=== PATIENT | male | born 1930 | race Caucasian/White ===

== ENCOUNTER 2018-11-02 18:29 | Observation (INO) | payer MEDICARE, BC ==
[2018-11-02] MEDS ORDERED: Furosemide 40 MG/4 ML VIAL IVPUSH ONE (19:34)
--- NOTE | 2018-11-02 19:51 | EDM.PDOC ---
ED HPI GENERAL MEDICAL PROBLEM - General Chief Complaint: Respiratory Problem Stated Complaint: ILLNESS Time Seen by Provider: 11/02/18 18:31 Source of Information: Reports: Patient, Family (Daughter Krista Steven), Provider (clinic note/labs) History Limitations: Reports: No Limitations - History of Present Illness INITIAL COMMENTS - FREE TEXT/NARRATIVE: Shortness of breath: This is a 87 year old male presents [facility], He is here with his daughter Krista Steven, she reports her Father has lived alone since 2003, this fall she moved to his home to help him out due to failing health. For the past two weeks he has been having worsen breathing. Whenever he got up with his walker or moves around he becomes very short of breath. Last night he didn't sleep, whenever he tried to lay down became very short of breath, he tried to sleep upright with pillows. His daughter brought him to [facility] where he had labs and a chest xray. He was noted to be very short of breath, sent to ER for further evaluation. past medical history of atrial fib.-pacemaker with defib, Coumadin. shortness of breath: albuterol nebs every 4 hours as needed. Onset: Gradual Duration: Week(s):, Getting Worse Location: Reports: Chest, Generalized, Other (bilateral lower leg edema) Severity: Severe (with any activity) Improves with: Reports: Rest Worsens with: Reports: Movement Associated Symptoms: Reports: Shortness of Breath denies pain Pain Score (Numeric/FACES): 0 - Related Data Allergies Allergy/AdvReac Type Severity Reaction Status Date / Time No Known Allergies Allergy Verified 11/02/18 19:38 Home Meds: Home Meds Albuterol Sulfate 3 ml INH Q4H PRN 01/31/18 [History] Carvedilol 1 tab PO BID 01/31/18 [History] Losartan Potassium 1 tab PO DAILY 01/31/18 [History] Simvastatin [Zocor] 1 tab PO DAILY 01/31/18 [History] Acetaminophen with Codeine [Acetaminophen-Cod #3] 1 tab PO Q6H PRN 11/02/18 [ History] Amiodarone [Cordarone] 200 mg PO DAILY 11/02/18 [History] Gluc Steen Dipo Ch/Srinath Steen/C/José Manuel [Glucosamine Chondroitin Caplet] 1 tab PO BID [History] Warfarin [Coumadin] 2.5 mg PO ASDIRECTED 11/02/18 [History] Past Medical History 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 with ADL.has 3 step children-not involved in care, and 2 daughters.) Occupation: Retired ED ROS GENERAL - Review of Systems Review Of Systems: See Below Constitutional: Reports: Weakness, Fatigue (due to shortness of breath) HEENT: Reports: Other (hard of hearing, no teeth) Respiratory: Reports: Shortness of Breath Cardiovascular: Reports: Dyspnea on Exertion, Edema, Orthopnea Endocrine: Reports: No Symptoms GI/Abdominal: Reports: No Symptoms : Reports: No Symptoms Musculoskeletal: Reports: Other (arthritis) Skin: Reports: Dryness Neurological: Reports: Pre-Existing Deficit (difficulty walking) Psychiatric: Reports: No Symptoms Hematologic/Lymphatic: Reports: No Symptoms Immunologic: Reports: No Symptoms ED EXAM, GENERAL - Physical Exam Exam: See Below Exam Limited By: Respiratory Distress (with activity) General Appearance: Alert, WD/WN, No Apparent Distress (while at rest, increase respiratory distress with activity) Eye Exam: Bilateral Eye: EOMI, Normal Inspection, PERRL Ears: Normal External Exam, Normal Canal, Normal TMs, Other (hard of hearing) Ear Exam: Bilateral Ear: Canal Normal, TM normal, TM Dull Nose: Normal Inspection, Normal Mucosa, No Blood Throat/Mouth: Normal Inspection, Normal Lips, Normal Gums, No Airway Compromise , Other (no teeth upper or lower) Head: Atraumatic, Normocephalic Neck: Normal Inspection, Supple, Non-Tender, Full Range of Motion Respiratory/Chest: Decreased Breath Sounds (bilateral , no wheezing, rhonchi or crackles at rest, with movement increase wheezing, shortness of breath.) Cardiovascular: No Murmur, No Rub, Irregularly Irregular, Other (bilateral, 2+ pitting edema to mid calves, no signs of secondary infection. ) GI/Abdominal: Normal Bowel Sounds, Soft, Non-Tender, No Organomegaly, No Distention, Pelvis Stable (Male) Exam: No Hernia, Normal Inspection Rectal (Males) Exam: Deferred Back Exam: Normal Inspection, Decreased Range of Motion (due to arthritis) Extremities: Pedal Edema (bilateral 2+ pitting), Slow Capillary Refill (lower leg due to edema), Other (toes and feet skin very dry and flakey) Neurological: Alert, Oriented, Normal Cognition Psychiatric: Normal Affect, Normal Mood, Other (pleasant, alert and good historian. ) Skin Exam: Warm, Dry, Intact, Normal Color, No Rash Lymphatic: No Adenopathy Course - Vital Signs Last Recorded V/S: Last Vital Signs Temp 36.1 C 11/02/18 19:14 Pulse 57 L 11/02/18 19:14 Resp 16 11/02/18 19:14 BP 148/69 H 11/02/18 19:14 Pulse Ox 94 L 11/02/18 19:14 - Orders/Labs/Meds Orders: Active Orders 24 hr Category Date Time Status Chest w Cont [CT] Stat Exams 11/02/18 19:32 Ordered Sodium Chloride 0.9% [Saline Flush] Med 11/02/18 19:23 Active 10 ml FLUSH ASDIRECTED PRN Saline Lock Insert [OM.PC] Routine Oth 11/02/18 19:23 Ordered Medication Orders Sodium Chloride (Saline Flush) 10 ml FLUSH ASDIRECTED PRN PRN Reason: Keep Vein Open Labs: Laboratory Tests 11/02/18 Range/Units 18:51 Puncture Site Lt brachial ABG pH 7.487 H (7.350-7.450) ABG pCO2 28.6 L (35.0-42.0) mmHg ABG pO2 105.0 H (75.0-100.0) mmHg ABG HCO3 21.4 L (22.0-26.0) mmol/L ABG Total CO2 19.1 L (23.0-27.0) mmol/L ABG O2 Saturation 98.3 H (95.0-98.0) % ABG O2 Content 16.0 (15.0-23.0) %vol ABG Base Excess -0.7 mm/L ABG Hemoglobin 11.8 L (13.5-18.0) g/dL ABG Oxyhemoglobin 95.6 % ABG Carboxyhemoglobin 2.1 H (0.0-1.6) % ABG Methemoglobin 0.6 % Dinesh Test Passed O2 Delivery Device Room air Meds: Medications Generic Name Dose Route Start Last Admin Trade Name Freq PRN Reason Stop Dose Admin Sodium Chloride 10 ml 11/02/18 19:23 Saline Flush FLUSH ASDIRECTED PRN Keep Vein Open Discontinued Medications Generic Name Dose Route Start Last Admin Trade Name Freq PRN Reason Stop Dose Admin Furosemide 40 mg 11/02/18 19:34 Lasix IVPUSH 11/02/18 19:35 ONETIME ONE - Re-Assessments/Exams Free Text/Narrative Re-Assessment/Exam: 11/02/18 20:06 consult with Internal Medicine, Hospitalist. labs: ABG Imaging: Chest CT with contrast Meds: lasix 40mg IVP will admit to [facility] for further care and treatment. Mr. Angeles and Daughter are in agreement with plan of care. Departure - Departure Time of Disposition: 20:08 Disposition: Admitted As Inpatient 66 Condition: Good Clinical Impression: Congestive heart failure - Discharge Information *PRESCRIPTION DRUG MONITORING PROGRAM REVIEWED*: Not Applicable *COPY OF PRESCRIPTION DRUG MONITORING REPORT IN PATIENT SHANTI: Not Applicable Referrals: Be Smith MD [Primary Care Provider] - - My Orders Last 24 Hours: My Active Orders 11/02/18 19:23 Sodium Chloride 0.9% [Saline Flush] 10 ml FLUSH ASDIRECTED PRN Saline Lock Insert [OM.PC] Routine 11/02/18 19:32 Chest w Cont [CT] Stat - Assessment/Plan Last 24 Hours: My Active Orders 11/02/18 19:23 Sodium Chloride 0.9% [Saline Flush] 10 ml FLUSH ASDIRECTED PRN Saline Lock Insert [OM.PC] Routine 11/02/18 19:32 Chest w Cont [CT] Stat
[2018-11-02] MEDS ORDERED: Sodium Chloride 0.9% 10 ML Syringe FLUSH ONE (19:53)
[2018-11-02] MEDS ORDERED: Sodium Chloride 0.9% 75 ML IV SCH (20:00)
[2018-11-02] MEDS ORDERED: Iopamidol 612 MG/ML 100 ML Bottle IV SCH (20:00)
[2018-11-02] MEDS: Sodium Chloride 0.9% 10 ML Syringe FLUSH PRN (20:26)
--- NOTE | 2018-11-02 20:27 | PCM.HP ---
H&P History of Present Illness - General Date of Service: 11/02/18 Admit Problem/Dx: Admission Diagnosis/Problem Admission Diagnosis/Problem Congestive heart failure Source of Information: Patient, Family History Limitations: Reports: No Limitations - History of Present Illness Initial Comments - Free Text/Narative: - History of Present Illness Shortness of breath: This is a 87 year old male presents [facility], He is here with his daughter Krista Steven, she reports her Father has lived alone since 2003, this fall she moved to his home to help him out due to failing health. For the past two weeks he has been having worsen breathing. Whenever he got up with his walker or moves around he becomes very short of breath. Last night he didn't sleep, whenever he tried to lay down became very short of breath, he tried to sleep upright with pillows. His daughter brought him to [facility] where he had labs and a chest xray. He was noted to be very short of breath, sent to ER for further evaluation. past medical history of atrial fib.-pacemaker with defib, Coumadin. shortness of breath: albuterol nebs every 4 hours as needed Onset of Symptoms: Reports: Gradual Duration of Symptoms: Reports: Week(s): (past weeks failing health, past two days increased shortness of breath) Location: Reports: Generalized Severity: Moderate (shortness of breath with activity) Improves with: Reports: Rest Worsens with: Reports: Movement Associated Symptoms: Reports: Malaise, Shortness of Breath, Weakness denies pain Pain Score (Numeric/FACES): 0 - Related Data Allergies/Adverse Reactions: Allergies Allergy/AdvReac Type Severity Reaction Status Date / Time No Known Allergies Allergy Verified 11/02/18 19:38 Home Medications: Home Meds Albuterol Sulfate 3 ml INH Q4H PRN 01/31/18 [History] Carvedilol 1 tab PO BID 01/31/18 [History] Losartan Potassium 1 tab PO DAILY 01/31/18 [History] Simvastatin [Zocor] 1 tab PO DAILY 01/31/18 [History] Acetaminophen with Codeine [Acetaminophen-Cod #3] 1 tab PO Q6H PRN 11/02/18 [ History] Amiodarone [Cordarone] 200 mg PO DAILY 11/02/18 [History] Gluc Steen Dipo Ch/Srinath Steen/C/José Manuel [Glucosamine Chondroitin Caplet] 1 tab PO BID [History] Warfarin [Coumadin] 2.5 mg PO ASDIRECTED 11/02/18 [History] Past Medical History 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 of Hearing Cardiovascular History: Reports: Afib, Automatic Implantable Cardioverter Defibrillators, Heart Failure, Pacemaker, SOB on Exertion Other Cardiovascular History: pacer/defib Respiratory History: Reports: SOB Gastrointestinal History: Reports: GERD Musculoskeletal History: Reports: Arthritis Hematologic History: Reports: Anticoagulation Therapy Dermatologic History: Reports: Other (See Below) Other Dermatologic History: dry feet - Past Surgical History HEENT Surgical History: Reports: Cataract Surgery Social & Family History - Tobacco Use Smoking Status *Q: Never Smoker - Recreational Drug Use Recreational Drug Use: No - Living Situation & Occupation Living situation: Reports: with Family (lives in his own home in [place], [place], has Daughter Krista Steven living in home to [facility] with ADL.has 3 step children-not involved in care, and 2 daughters.) Occupation: Retired H&P Review of Systems - Review of Systems: Review Of Systems: See Below General: Reports: Weakness, Weight Gain (Daughter reports 10 pound wt gain over the past few months), Other (shortness of breath with activity) HEENT: Reports: Other (absent teeth, hard of hearing, does not wear hearing aides) Pulmonary: Reports: Shortness of Breath, Wheezing Cardiovascular: Reports: Dyspnea on Exertion, Orthopnea, Edema (bilateral lower legs) Gastrointestinal: Reports: No Symptoms Genitourinary: Reports: No Symptoms Musculoskeletal: Reports: Muscle Stiffness (arthritis from advanced age), Other (arthritis) Skin: Reports: Dryness (feet and toes with very dry skin.) Psychiatric: Reports: No Symptoms Neurological: Reports: No Symptoms Hematologic/Lymphatic: Reports: Other (coumadin therapy for A-fib., cardiac pacer with defib.) Immunologic: Reports: No Symptoms Exam - Exam Exam: See Below - Vital Signs Vital Signs: Last Vital Signs Temp 36.1 C 11/02/18 19:14 Pulse 51 L 11/02/18 20:02 Resp 16 11/02/18 19:14 BP 154/67 H 11/02/18 20:02 Pulse Ox 99 11/02/18 20:02 Weight: 74.843 kg - Exam Quality Assessment: Supplemental Oxygen, DVT Prophylaxis (coumadin therapy) General: Alert, Oriented, Cooperative, Moderate Distress (with any activity.) HEENT: PERRLA, Conjunctiva Clear, EOMI, Posterior Pharynx Clear, Pupils Equal, Pupils Reactive, TMs Clear, Other (absent teeth) Neck: Supple, Trachea Midline, Full Range of Motion Lungs: Clear to Auscultation, Normal Respiratory Effort, Decreased Breath Sounds , Wheezing (with any activity) Cardiovascular: Irregular Rhythm GI/Abdominal Exam: Normal Bowel Sounds, Soft, Non-Tender, No Distention, No Abnormal Bruit (Male) Exam: Normal Inspection Rectal (Males) Exam: Deferred Back Exam: Normal Inspection Extremities: Pedal Edema (bilateral 2+ pitting edema to mid calves), Slow Capillary Refill, Other (bilateral leg weakness due to edema and arthritis in knees) Skin: Warm, Dry, Intact Neurological: Strength Equal Bilateral, Normal Speech Neuro Extensive - Mental Status: Alert, Oriented x3, Normal Mood/Affect, Normal Cognition, Memory Intact Neuro Extensive - Motor, Sensory, Reflexes: Motor/Sensory Deficits (difficulty walking due to arthritis, edema and shortness of breath) Psychiatric: Alert, Normal Affect, Normal Mood - Patient Data Lab Results Last 24 hrs: Laboratory Results - last 24 hr 11/02/18 Range/Units 18:51 Puncture Site Lt brachial ABG pH 7.487 H (7.350-7.450) ABG pCO2 28.6 L (35.0-42.0) mmHg ABG pO2 105.0 H (75.0-100.0) mmHg ABG HCO3 21.4 L (22.0-26.0) mmol/L ABG Total CO2 19.1 L (23.0-27.0) mmol/L ABG O2 Saturation 98.3 H (95.0-98.0) % ABG O2 Content 16.0 (15.0-23.0) %vol ABG Base Excess -0.7 mm/L ABG Hemoglobin 11.8 L (13.5-18.0) g/dL ABG Oxyhemoglobin 95.6 % ABG Carboxyhemoglobin 2.1 H (0.0-1.6) % ABG Methemoglobin 0.6 % Dinesh Test Passed O2 Delivery Device Room air - Problem List (1) Congestive heart failure SNOMED Code(s): 77365650 ICD Code: I50.9 - HEART FAILURE, UNSPECIFIED Status: Acute Priority: High Current Visit: Yes Qualifiers: Heart failure type: unspecified Heart failure chronicity: acute on chronic Qualified Code(s): I50.9 - Heart failure, unspecified Problem List Initiated/Reviewed/Updated: Yes Orders Last 24hrs: Active Orders 24 hr Category Date Time Status Patient Status Manage Transfer [TRANSFER] Routine ADT 11/02/18 20:10 Ordered Chest w Cont [CT] Stat Exams 11/02/18 19:32 Ordered Iopamidol [Isovue-300 (61%)] Med 11/02/18 20:00 Active 100 ml IV . DIRECTED Sodium Chloride 0.9% [Normal Saline] 75 ml Med 11/02/18 20:00 Active IV ASDIRECTED Sodium Chloride 0.9% [Saline Flush] Med 11/02/18 19:23 Active 10 ml FLUSH ASDIRECTED PRN Saline Lock Insert [OM.PC] Routine Oth 11/02/18 19:23 Ordered Resuscitation Status Routine Resus Stat 11/02/18 20:12 Ordered Medication Orders Sodium Chloride (Normal Saline) 75 mls @ 3 mls/sec IV ASDIRECTED JOSEPH Last Admin: 11/02/18 20:26 Dose: 3 mls/sec Iopamidol (Isovue-300 (61%)) 100 ml IV . DIRECTED JOSEPH Last Admin: 11/02/18 20:26 Dose: 100 ml Sodium Chloride (Saline Flush) 10 ml FLUSH ASDIRECTED PRN PRN Reason: Keep Vein Open Last Admin: 11/02/18 20:26 Dose: 10 ml Assessment/Plan Comment:: ASSESSMENT / PLAN -This is a 87 year old male present [facility] for evaluation of shortness of breath. Shortness of breath: This is a 87 year old male presents to [facility], He is here with his daughter Krista Steven, she reports her Father has lived alone since 2003, this fall she moved to his home to help him out due to failing health. For the past two weeks he has been having worsen breathing. Whenever he got up with his walker or moves around he becomes very short of breath. Last night he didn't sleep, whenever he tried to lay down became very short of breath, he tried to sleep upright with pillows. His daughter brought him to [facility] where he had labs and a chest xray. He was noted to be very short of breath, sent to ER for further evaluation. past medical history of atrial fib.-pacemaker with defib, Coumadin. shortness of breath: albuterol nebs every 4 hours as needed Plan -Admit OBS to [address] [place] [address] for further monitoring -given Lasix 40 mg IVP once in ER -CT chest with contrast completed in ER, awaiting results -saline lock -Telemetry -Oxygen 2 liter per nasal cannula -Albuterol nebs or Duonebs every 4 hours as needed for shortness of breath -Advise to notify nurses of any chest pain or other symptoms -And a.m. labs: CBC, BMP,INR, PT Maintenance issues -Orders home meds: ordered -Nutrition: mechanical soft diet due to absent teeth -Hernandez catheter not indicated at this time -DVT: Coumadin -GI Prophalaxis; Protonix 40mg daily CODE STATUS: Full Admission status: Admit to Observation -I expect this patient to stay less than 24 hours, not to exceed 96 hours for evaluation and management of this problem. Disposition: home with Daughter Primary care provider: Dr. Smith, [facility] Hospitalist: Dr. Hoffmann
[2018-11-02] MEDS ORDERED: Ondansetron 4 MG Tab.DIS PO PRN (21:20)
[2018-11-02] MEDS ORDERED: Docusate Sodium 100 MG Cap PO PRN (21:20)
[2018-11-02] MEDS ORDERED: Albuterol/Ipratropium 3.0-0.5 MG/3 ML Neb Soln NEB PRN (21:20)
[2018-11-02] MEDS ORDERED: Acetaminophen 325 MG Tab PO PRN (21:20)
[2018-11-02] MEDS ORDERED: Morphine 2 MG/ML Syringe IVPUSH PRN (21:20)
[2018-11-02] MEDS ORDERED: Acetaminophen/Codeine 300-30 MG Tab PO PRN (21:20)
[2018-11-02] MEDS ORDERED: Albuterol 0.083% 2.5 MG/3 ML Neb Soln NEB PRN (21:20)
[2018-11-02] MEDS ORDERED: Melatonin 3 MG Tab PO PRN (21:20)
[2018-11-02] MEDS ORDERED: diphenhydrAMINE 25 MG Cap PO PRN (21:20)
[2018-11-02] MEDS: Carvedilol 25 MG Tab PO SCH (21:51)
[2018-11-02] MEDS ORDERED: Warfarin 2.5 MG Tab PO ONE (23:15)
[2018-11-03] MEDS ORDERED: Furosemide 40 MG/4 ML VIAL IVPUSH ONE ×2 (08:30→18:00)
[2018-11-03] MEDS ORDERED: Potassium Chloride 20 MEQ Tab.ER PO ONE ×2 (09:00→17:00)
[2018-11-03] MEDS: Sodium Chloride 0.9% 10 ML Syringe FLUSH PRN (09:06)
[2018-11-03] MEDS: Losartan 50 MG Tab PO SCH (09:11)
[2018-11-03] MEDS: Amiodarone 200 MG Tab PO SCH (09:11)
[2018-11-03] MEDS: Carvedilol 25 MG Tab PO SCH ×2 (09:12→20:37)
[2018-11-03] MEDS: Potassium Chloride 20 MEQ, Lidocaine 1% 2 ML in Sodium Chloride 0.9% 100 ML IV SCH ×2 (10:05→12:19)
--- NOTE | 2018-11-03 11:10 | PCM.PN ---
- General Info Date of Service: 11/03/18 Subjective Update: Bryce is an 87-year-old gentleman who was admitted through the emergency department with increased shortness of breath secondary to congestive heart failure exacerbation. Weight had gone up approximately 10 pounds over the past few days he developed increased peripheral edema associated with increased shortness of breath. Initially he presented to the walk-in clinic and was referred to the emergency department for further evaluation. CT scan of the chest was obtained showing no evidence of pulmonary embolism or significant infiltrate. He feels better this morning after having received IV furosemide in the emergency department and again this morning. Functional Status: Reports: Tolerating Diet, Urinating - Review of Systems General: Reports: Weakness. Denies: Fever, Chills Pulmonary: Reports: Shortness of Breath. Denies: Pleuritic Chest Pain, Cough, Sputum, Hemoptysis, Wheezing Cardiovascular: Reports: Dyspnea on Exertion, Edema. Denies: Chest Pain, Palpitations, Orthopnea, PND, Lightheadedness Gastrointestinal: Reports: No Symptoms - Patient Data Vitals - Most Recent: Last Vital Signs Temp 97.9 F 11/03/18 10:53 Pulse 50 L 11/03/18 10:53 Resp 16 11/03/18 10:53 BP 101/39 L 11/03/18 10:53 Pulse Ox 94 L 11/03/18 10:53 Weight - Most Recent: 161 lb 14.4 oz I&O - Last 24 Hours: Intake & Output 11/02/18 11/03/18 11/03/18 22:59 06:59 14:59 Intake Total 432 Output Total 225 875 390 Balance -225 -875 42 Lab Results Last 24 Hours: Laboratory Results - last 24 hr 11/02/18 11/02/18 11/03/18 Range/Units 18:51 22:09 05:55 WBC 6.3 (4.5-11.0) K/uL RBC 3.65 L (4.30-5.90) M/uL Hgb 11.0 L (12.0-15.0) g/dL Hct 33.1 L (40.0-54.0) % MCV 91 (80-98) fL MCH 30 (27-31) pg MCHC 33 (32-36) % Plt Count 253 (150-400) K/uL Neut % (Auto) 60 (36-66) % Lymph % (Auto) 20 L (24-44) % [place] % (Auto) 17 H (2-6) % Eos % (Auto) 3 (2-4) % Baso % (Auto) 0 (0-1) % PT 26.5 H (9.5-12.0) sec INR 2.54 H (0.80-1.20) Puncture Site Lt brachial ABG pH 7.487 H (7.350-7.450) ABG pCO2 28.6 L (35.0-42.0) mmHg ABG pO2 105.0 H (75.0-100.0) mmHg ABG HCO3 21.4 L (22.0-26.0) mmol/L ABG Total CO2 19.1 L (23.0-27.0) mmol/L ABG O2 Saturation 98.3 H (95.0-98.0) % ABG O2 Content 16.0 (15.0-23.0) %vol ABG Base Excess -0.7 mm/L ABG Hemoglobin 11.8 L (13.5-18.0) g/dL ABG Oxyhemoglobin 95.6 % ABG Carboxyhemoglobin 2.1 H (0.0-1.6) % ABG Methemoglobin 0.6 % Dinesh Test Passed O2 Delivery Device Room air Sodium (140-148) mmol/L Potassium (3.6-5.2) mmol/L Chloride (100-108) mmol/L Carbon Dioxide (21-32) mmol/L Anion Gap (5.0-14.0) mmol/L BUN (7-18) mg/dL Creatinine (0.8-1.3) mg/dL Est Cr Clr Drug Dosing mL/min Estimated GFR (MDRD) (>60) Glucose (74-106) mg/dL Calcium (8.5-10.1) mg/dL 11/03/18 11/03/18 Range/Units 05:55 05:55 WBC (4.5-11.0) K/uL RBC (4.30-5.90) M/uL Hgb (12.0-15.0) g/dL Hct (40.0-54.0) % MCV (80-98) fL MCH (27-31) pg MCHC (32-36) % Plt Count (150-400) K/uL Neut % (Auto) (36-66) % Lymph % (Auto) (24-44) % [place] % (Auto) (2-6) % Eos % (Auto) (2-4) % Baso % (Auto) (0-1) % PT 26.4 H (9.5-12.0) sec INR 2.53 H (0.80-1.20) Puncture Site ABG pH (7.350-7.450) ABG pCO2 (35.0-42.0) mmHg ABG pO2 (75.0-100.0) mmHg ABG HCO3 (22.0-26.0) mmol/L ABG Total CO2 (23.0-27.0) mmol/L ABG O2 Saturation (95.0-98.0) % ABG O2 Content (15.0-23.0) %vol ABG Base Excess mm/L ABG Hemoglobin (13.5-18.0) g/dL ABG Oxyhemoglobin % ABG Carboxyhemoglobin (0.0-1.6) % ABG Methemoglobin % Dinesh Test O2 Delivery Device Sodium 136 L (140-148) mmol/L Potassium 3.5 L (3.6-5.2) mmol/L Chloride 101 (100-108) mmol/L Carbon Dioxide 27 (21-32) mmol/L Anion Gap 11.5 (5.0-14.0) mmol/L BUN 14 (7-18) mg/dL Creatinine 1.2 (0.8-1.3) mg/dL Est Cr Clr Drug Dosing 37.67 mL/min Estimated GFR (MDRD) 57 L (>60) Glucose 88 (74-106) mg/dL Calcium 8.7 (8.5-10.1) mg/dL Med Orders - Current: Current Medications Acetaminophen (Tylenol) 650 mg PO Q4H PRN PRN Reason: Pain (Mild 1-3)/fever Acetaminophen/Codeine Phosphate (Tylenol With Codeine No.3 300mg/30mg) 1 tab PO Q6H PRN PRN Reason: Pain Albuterol (Proventil Neb Soln) 2.5 mg NEB Q4H PRN PRN Reason: Shortness Of Breath/wheezing Albuterol/Ipratropium (Duoneb 3.0-0.5 Mg/3 Ml) 3 ml NEB QID PRN PRN Reason: Shortness Of Breath/wheezing Amiodarone HCl (Cordarone) 200 mg PO DAILY [facility] Last Admin: 11/03/18 09:11 Dose: 200 mg Carvedilol (Coreg) 25 mg PO BID [facility] Last Admin: 11/03/18 09:12 Dose: 25 mg Diphenhydramine HCl (Benadryl) 25 mg PO BEDTIME PRN PRN Reason: Insomnia Docusate Sodium (Colace) 100 mg PO BID PRN PRN Reason: Constipation Furosemide (Lasix) 40 mg IVPUSH NOW ONE Stop: 11/03/18 18:01 Furosemide (Lasix) 40 mg IVPUSH NOW ONE Stop: 11/04/18 08:01 Potassium Chloride 20 meq/Lidocaine HCl 2 ml/ Sodium Chloride 112 mls @ 56 mls/ hr IV Q2H [facility] Stop: 11/03/18 13:59 Last Admin: 11/03/18 10:05 Dose: 56 mls/hr Losartan Potassium (Cozaar) 50 mg PO DAILY [facility] Last Admin: 11/03/18 09:11 Dose: 50 mg Melatonin (Melatonin) 6 mg PO BEDTIME PRN PRN Reason: Insomnia Morphine Sulfate (Morphine) 2 mg IVPUSH Q2H PRN PRN Reason: Pain (severe 7-10) Ondansetron HCl (Zofran Odt) 4 mg PO Q6H PRN PRN Reason: Nausea able to take PO Potassium Chloride (Klor-Con M20) 40 meq PO ONETIME ONE Stop: 11/03/18 17:01 Simvastatin (Zocor) 20 mg PO BEDTIME [facility] Sodium Chloride (Saline Flush) 10 ml FLUSH ASDIRECTED PRN PRN Reason: Keep Vein Open Last Admin: 11/03/18 09:06 Dose: 10 ml Warfarin Sodium (Coumadin) 1.25 mg PO MoWeFr@1300 [facility] Warfarin Sodium (Coumadin) 2.5 mg PO SuTuThSa@1300 [facility] Discontinued Medications Furosemide (Lasix) 40 mg IVPUSH ONETIME ONE Stop: 11/02/18 19:35 Last Admin: 11/02/18 20:50 Dose: 40 mg Furosemide (Lasix) 40 mg IVPUSH NOW ONE Stop: 11/03/18 08:31 Last Admin: 11/03/18 09:06 Dose: 40 mg Sodium Chloride (Normal Saline) 75 mls @ 3 mls/sec IV ASDIRECTED [facility] Last Admin: 11/02/18 20:26 Dose: 3 mls/sec Iopamidol (Isovue-300 (61%)) 100 ml IV . DIRECTED [facility] Last Admin: 11/02/18 20:26 Dose: 100 ml Potassium Chloride (Klor-Con M20) 40 meq PO ONETIME ONE Stop: 11/03/18 09:01 Last Admin: 11/03/18 09:10 Dose: 40 meq Sodium Chloride (Saline Flush) 10 ml FLUSH ONETIME ONE Stop: 11/02/18 19:54 Last Admin: 11/02/18 20:55 Dose: 10 ml Warfarin Sodium (Coumadin) 1.25 mg PO ONETIME ONE Stop: 11/02/18 23:16 Last Admin: 11/02/18 23:18 Dose: 1.25 mg - Exam Quality Assessment: Supplemental Oxygen, DVT Prophylaxis General: Alert, Oriented, Cooperative, Mild Distress Lungs: Clear to Auscultation, Normal Respiratory Effort Cardiovascular: Regular Rate, Regular Rhythm, Murmurs GI/Abdominal Exam: Soft, Non-Tender, No Organomegaly, No Distention Extremities: Non-Tender, Pedal Edema - Problem List Review Problem List Initiated/Reviewed/Updated: Yes - My Orders Last 24 Hours: My Active Orders 11/03/18 10:00 Potassium Chloride 20 meq Lidocaine 1% [Xylocaine 1%] 2 ml Sodium Chloride 0.9 % [Normal Saline] 100 ml IV Q2H 11/03/18 17:00 Potassium Chloride [Klor-Con M20] 40 meq PO ONETIME ONE 11/03/18 18:00 Furosemide [Lasix] 40 mg IVPUSH NOW ONE 11/04/18 05:00 BASIC METABOLIC PANEL,BMP [CHEM] Timed INR,PT,PROTHROMBIN TIME [COAG] Timed 11/04/18 08:00 Furosemide [Lasix] 40 mg IVPUSH NOW ONE - Plan Plan:: ASSESSMENT / PLAN Congestive heart failure exacerbation-increased shortness of breath and peripheral edema with 10 pound weight gain -Lasix 40 mg IVP twice daily -Oxygen 2 liter per nasal cannula -Albuterol nebs or Duonebs every 4 hours as needed for shortness of breath Maintenance issues -Orders home meds: ordered -Nutrition: mechanical soft diet due to absent teeth -Hernandez catheter not indicated at this time -DVT: Coumadin -GI Prophalaxis; Protonix 40mg daily CODE STATUS: Full Admission status: Admit to Observation -I expect this patient to stay less than 24 hours, not to exceed 96 hours for evaluation and management of this problem. Disposition: home with Daughter Primary care provider: Dr. Smith, [facility] Hospitalist: Dr. Hoffmann
[2018-11-03] MEDS ORDERED: Warfarin 2.5 MG Tab PO SCH ×2 (13:00→20:30)
[2018-11-03] MEDS ORDERED: Simvastatin 20 MG Tab PO SCH (21:00)
[2018-11-04] MEDS ORDERED: Furosemide 40 MG/4 ML VIAL IVPUSH ONE (08:00)
[2018-11-04] MEDS: Losartan 50 MG Tab PO SCH (08:40)
[2018-11-04] MEDS: Amiodarone 200 MG Tab PO SCH (08:40)
[2018-11-04] MEDS: Carvedilol 25 MG Tab PO SCH (08:40)
--- NOTE | 2018-11-04 11:18 | PCM.DCSUM1 ---
Discharge Summary - Hospital Course Brief History: Mr. Angeles is an 87-year-old gentleman who was admitted through the emergency department with shortness of breath and increased peripheral edema secondary to congestive heart failure. - Discharge Data Discharge Date: 11/04/18 Discharge Disposition: Home, W Home Health Agency 06 Condition: Fair - Discharge Diagnosis/Problem(s) (1) Peripheral edema SNOMED Code(s): 560288781 ICD Code: R60.9 - EDEMA, UNSPECIFIED Status: Acute Current Visit: Yes (2) Congestive heart failure SNOMED Code(s): 37536301 ICD Code: I50.9 - HEART FAILURE, UNSPECIFIED Status: Acute Priority: High Current Visit: Yes Qualifiers: Heart failure type: unspecified Heart failure chronicity: acute on chronic Qualified Code(s): I50.9 - Heart failure, unspecified (3) Atrial fibrillation SNOMED Code(s): 37162984 ICD Code: I48.91 - UNSPECIFIED ATRIAL FIBRILLATION Status: Acute Current Visit: Yes - Patient Summary/Data Hospital Course: This is a 87 year old male who presented to ED from [facility], he is here with his daughter Krista Steven, she reports her Father has lived alone since 2003, this fall she moved to his home to help him out due to failing health. For the past two weeks he has been having increased shortness of breath and peripheral edema. Whenever he got up with his walker or moves around he becomes very short of breath. Last night he didn't sleep, whenever he tried to lay down became very short of breath, he tried to sleep upright with pillows. His daughter brought him to [facility] where he had labs and a chest xray. He was noted to be very short of breath, sent to ER for further evaluation. Arterial blood gases were obtained in the emergency department and showed evidence of hyperventilation with a respiratory alkalosis. CT scan of the chest was obtained and showed no evidence of pulmonary emboli, infiltrate, or pulmonary edema. He was given 40 mg of furosemide IV in the emergency department. Hospital stay he was treated with furosemide 40 mg IV twice daily and had excellent improvement in symptoms as well as peripheral edema. By the time of discharge he was able to walk in the hallways without significant shortness of breath and there had been marked improvement in the peripheral edema although it had not totally resolved. He does have a known history of ischemic cardiomyopathy and congestive heart failure. On admission he was already treated with beta maddy therapy as well as an ARB. Echocardiogram was not available during the period time that he was hospitalized. He will be discharged home on a 2 g sodium diet and furosemide 20 mg by mouth daily. Activity will be as tolerated and a follow-up appointment will be scheduled with his primary care provider within one week. BMP will be obtained at the time of follow-up appointment and he will continue to follow regularly in the Coumadin clinic. - Patient Instructions Diet: Low Sodium Activity: As Tolerated Other/Special Instructions: Please schedule follow-up appointment with Dr. Smith within one week. BMP should be obtained at the time of follow-up appointment. Follow-up in the Coumadin clinic as previously scheduled. - Discharge Plan *PRESCRIPTION DRUG MONITORING PROGRAM REVIEWED*: Not Applicable *COPY OF PRESCRIPTION DRUG MONITORING REPORT IN PATIENT SHANTI: Not Applicable Prescriptions/Med Rec: Furosemide 20 mg PO DAILY #30 tablet Home Medications: Home Meds Albuterol Sulfate 3 ml INH Q4H PRN 01/31/18 [History] Carvedilol 1 tab PO BID 01/31/18 [History] Losartan Potassium 1 tab PO DAILY 01/31/18 [History] Simvastatin [Zocor] 1 tab PO DAILY 01/31/18 [History] Acetaminophen with Codeine [Acetaminophen-Cod #3] 1 tab PO Q6H PRN 11/02/18 [ History] Amiodarone [Cordarone] 200 mg PO DAILY 11/02/18 [History] Gluc Steen Dipo Ch/Srinath Steen/C/José Manuel [Glucosamine Chondroitin Cap[place]] 1 tab PO BID [History] Warfarin [Coumadin] 2.5 mg PO ASDIRECTED 11/02/18 [History] Furosemide 20 mg PO DAILY #30 tablet 11/04/18 [Rx] Referrals: Be Smith MD [Primary Care Provider] - - Discharge Summary/Plan Comment DC Time >30 min.: No - Patient Data Vitals - Most Recent: Last Vital Signs Temp 96.2 F 11/04/18 11:06 Pulse 49 L 11/04/18 11:06 Resp 16 11/04/18 11:06 BP 102/37 L 11/04/18 11:06 Pulse Ox 95 11/04/18 11:06 Weight - Most Recent: 151 lb 12.8 oz I&O - Last 24 hours: Intake & Output 11/03/18 11/04/18 11/04/18 22:59 06:59 14:59 Intake Total 480 740 Output Total 1950 400 650 Balance -1470 -400 90 Lab Results - Last 24 hrs: Laboratory Results - last 24 hr 11/04/18 11/04/18 Range/Units 04:00 04:00 PT 26.4 H (9.5-12.0) sec INR 2.53 H (0.80-1.20) Sodium 136 L (140-148) mmol/L Potassium 4.3 (3.6-5.2) mmol/L Chloride 100 (100-108) mmol/L Carbon Dioxide 28 (21-32) mmol/L Anion Gap 12.3 (5.0-14.0) mmol/L BUN 22 H D (7-18) mg/dL Creatinine 1.2 (0.8-1.3) mg/dL Est Cr Clr Drug Dosing 37.67 mL/min Estimated GFR (MDRD) 57 L (>60) Glucose 108 H (74-106) mg/dL Calcium 8.7 (8.5-10.1) mg/dL Med Orders - Current: Current Medications Acetaminophen (Tylenol) 650 mg PO Q4H PRN PRN Reason: Pain (Mild 1-3)/fever Acetaminophen/Codeine Phosphate (Tylenol With Codeine No.3 300mg/30mg) 1 tab PO Q6H PRN PRN Reason: Pain Albuterol (Proventil Neb Soln) 2.5 mg NEB Q4H PRN PRN Reason: Shortness Of Breath/wheezing Albuterol/Ipratropium (Duoneb 3.0-0.5 Mg/3 Ml) 3 ml NEB QID PRN PRN Reason: Shortness Of Breath/wheezing Amiodarone HCl (Cordarone) 200 mg PO DAILY [facility] Last Admin: 11/04/18 08:40 Dose: 200 mg Carvedilol (Coreg) 25 mg PO BID [facility] Last Admin: 11/04/18 08:40 Dose: 25 mg Diphenhydramine HCl (Benadryl) 25 mg PO BEDTIME PRN PRN Reason: Insomnia Docusate Sodium (Colace) 100 mg PO BID PRN PRN Reason: Constipation Losartan Potassium (Cozaar) 50 mg PO DAILY [facility] Last Admin: 11/04/18 08:40 Dose: 50 mg Melatonin (Melatonin) 6 mg PO BEDTIME PRN PRN Reason: Insomnia Morphine Sulfate (Morphine) 2 mg IVPUSH Q2H PRN PRN Reason: Pain (severe 7-10) Ondansetron HCl (Zofran Odt) 4 mg PO Q6H PRN PRN Reason: Nausea able to take PO Simvastatin (Zocor) 20 mg PO BEDTIME [facility] Last Admin: 11/03/18 20:40 Dose: 20 mg Sodium Chloride (Saline Flush) 10 ml FLUSH ASDIRECTED PRN PRN Reason: Keep Vein Open Last Admin: 11/03/18 09:06 Dose: 10 ml Warfarin Sodium (Coumadin) 1.25 mg PO MoWeFr@1300 [facility] Warfarin Sodium (Coumadin) 2.5 mg PO SuTuThSa@1300 [facility] Last Admin: 11/03/18 14:54 Dose: 2.5 mg Discontinued Medications Furosemide (Lasix) 40 mg IVPUSH ONETIME ONE Stop: 11/02/18 19:35 Last Admin: 11/02/18 20:50 Dose: 40 mg Furosemide (Lasix) 40 mg IVPUSH NOW ONE Stop: 11/03/18 08:31 Last Admin: 11/03/18 09:06 Dose: 40 mg Furosemide (Lasix) 40 mg IVPUSH NOW ONE Stop: 11/03/18 18:01 Last Admin: 11/03/18 18:03 Dose: 40 mg Furosemide (Lasix) 40 mg IVPUSH NOW ONE Stop: 11/04/18 08:01 Last Admin: 11/04/18 08:31 Dose: 40 mg Sodium Chloride (Normal Saline) 75 mls @ 3 mls/sec IV ASDIRECTED [facility] Last Admin: 11/02/18 20:26 Dose: 3 mls/sec Potassium Chloride 20 meq/Lidocaine HCl 2 ml/ Sodium Chloride 112 mls @ 56 mls/ hr IV Q2H [facility] Stop: 11/03/18 13:59 Last Admin: 11/03/18 12:19 Dose: 56 mls/hr Iopamidol (Isovue-300 (61%)) 100 ml IV . DIRECTED [facility] Last Admin: 11/02/18 20:26 Dose: 100 ml Potassium Chloride (Klor-Con M20) 40 meq PO ONETIME ONE Stop: 11/03/18 09:01 Last Admin: 11/03/18 09:10 Dose: 40 meq Potassium Chloride (Klor-Con M20) 40 meq PO ONETIME ONE Stop: 11/03/18 17:01 Last Admin: 11/03/18 18:03 Dose: 40 meq Sodium Chloride (Saline Flush) 10 ml FLUSH ONETIME ONE Stop: 11/02/18 19:54 Last Admin: 11/02/18 20:55 Dose: 10 ml Warfarin Sodium (Coumadin) 1.25 mg PO ONETIME ONE Stop: 11/02/18 23:16 Last Admin: 11/02/18 23:18 Dose: 1.25 mg - Exam General: Reports: Alert, Oriented, Cooperative, No Acute Distress Lungs: Reports: Clear to Auscultation, Normal Respiratory Effort Cardiovascular: Reports: Regular Rate, Regular Rhythm, Murmurs GI/Abdominal Exam: Soft, Non-Tender, No Organomegaly, No Distention Extremities: Non-Tender, Pedal Edema
[2018-11-04] MEDS ORDERED: Warfarin 2.5 MG Tab PO SCH (12:00)
[2018-11-05] MEDS ORDERED: Warfarin 2.5 MG Tab PO SCH (13:00)
== END 2018-11-04 12:00 | disposition home health service (06) ==
LOC: JP.ED 18:29 → JP.MS 20:10 → UNDOADMIN 20:10 → JP.MS 20:10 → UNDODISIN 11-04 12:00
PROVIDERS: ADMIT Hospitalist; ATTEND Hospitalist
DX: I50.9 Heart failure, unspecified (principal); I48.91 Unspecified atrial fibrillation; I25.5 Ischemic cardiomyopathy; Z95.810 Presence of automatic (implantable) cardiac defibrillator; Z79.01 Long term (current) use of anticoagulants; Z79.899 Other long term (current) drug therapy
CPT/HCPCS: 36415; 36600; 71260; 80048; 82803; 85025; 85610; 97116-GP; 97162-GP; A9270-GY; J1940; J3480; J7030; Q9967

== ENCOUNTER 2020-10-01 05:38 | Inpatient (IN) | payer MEDICARE, BC ==
[2020-10-01] MEDS ORDERED: Sodium Chloride 0.9% 10 ML Syringe FLUSH PRN (05:50)
--- NOTE | 2020-10-01 05:56 | EDM.PDOC ---
ED HPI GENERAL MEDICAL PROBLEM - General Chief Complaint: Respiratory Problem Stated Complaint: [facility] Time Seen by Provider: 10/01/20 05:40 Source of Information: Reports: Patient, EMS, Old Records, RN History Limitations: Reports: No Limitations - History of Present Illness INITIAL COMMENTS - FREE TEXT/NARRATIVE: 89 yo male here from home via EMS for SOB. No fever. Has a hx of COPD. Does not use oxygen at home. Does not want CPR or intubation. Onset: Gradual Duration: Day(s):, Getting Worse Location: Reports: Chest Quality: Reports: Other (pain not reported) Severity: Severe Improves with: Reports: Rest Worsens with: Reports: Movement Context: Reports: Other (See HPI) Associated Symptoms: Reports: Cough, Shortness of Breath. 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: Other (see below) (none) - Related Data Allergies Allergy/AdvReac Type Severity Reaction Status Date / Time No Known Allergies Allergy Verified 10/01/20 05:48 Home Meds: Home Meds Albuterol Sulfate 3 ml INH Q4H PRN 01/31/18 [History] Losartan Potassium 0.5 tab PO DAILY 01/31/18 [History] Simvastatin [Zocor] 1 tab PO DAILY 01/31/18 [History] carvediloL [Carvedilol] 1 tab PO BID 01/31/18 [History] Acetaminophen with Codeine [Acetaminophen-Cod #3] 1 tab PO Q6H PRN 11/02/18 [History] Amiodarone [Cordarone] 200 mg PO DAILY 11/02/18 [History] Glucosamine/Chondroitin/C/José Manuel [Glucosamine Chondroitin Caplet] 1 tab PO BID 11/02/18 [History] Warfarin [Coumadin] 2.5 mg PO ASDIRECTED 11/02/18 [History] Furosemide 20 mg PO DAILY #30 tablet 11/04/18 [Rx] Past Medical History 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 of Hearing Cardiovascular History: Reports: Afib, Automatic Implantable Cardioverter Defibrillators, Heart Failure, Pacemaker, SOB on Exertion Other Cardiovascular History: pacer/defib Respiratory History: Reports: SOB Gastrointestinal History: Reports: GERD Musculoskeletal History: Reports: Arthritis Hematologic History: Reports: Anticoagulation Therapy Dermatologic History: Reports: Other (See Below) Other Dermatologic History: dry feet - Past Surgical History HEENT Surgical History: Reports: Cataract Surgery Social & Family History - Caffeine Use Caffeine Use: Reports: Coffee - Living Situation & Occupation Living situation: Reports: with Family (lives in his own home in [place], [place], has Daughter Krista Steven living in home to assisst with ADL.has 3 step children-not involved in care, and 2 daughters.) Occupation: Retired ED ROS GENERAL - Review of Systems Review Of Systems: See Below Constitutional: Reports: No Symptoms, Malaise. Denies: Fever, Chills HEENT: Reports: No Symptoms Respiratory: Reports: Shortness of Breath, Cough. Denies: Wheezing, Pleuritic Chest Pain, Sputum, Hemoptysis Cardiovascular: Reports: Edema (of both legs) Endocrine: Reports: No Symptoms GI/Abdominal: Reports: No Symptoms : Reports: No Symptoms Musculoskeletal: Reports: No Symptoms Skin: Reports: No Symptoms Neurological: Reports: No Symptoms ED EXAM, GENERAL - Physical Exam Exam: See Below Exam Limited By: No Limitations General Appearance: Alert, WD/WN, Moderate Distress Eye Exam: Bilateral Eye: Normal Inspection Ears: Normal External Exam, Normal Canal, Hearing Loss Ear Exam: Bilateral Ear: Auricle Normal, Canal Normal Nose: Normal Inspection, No Blood, Nasal Flaring Throat/Mouth: Normal Inspection, Normal Lips, Normal Oropharynx, Normal Voice, No Airway Compromise Head: Atraumatic, Normocephalic Neck: Normal Inspection Respiratory/Chest: Respiratory Distress, Decreased Breath Sounds, Rhonchi, Accessory Muscle Use, Retractions. No: No Respiratory Distress, Lungs Clear, Normal Breath Sounds, No Accessory Muscle Use, Wheezing Cardiovascular: Regular Rate, Rhythm, No Edema GI/Abdominal: Normal Bowel Sounds, Soft, No Distention Extremities: Non-Tender, Pedal Edema. No: No Pedal Edema Neurological: Alert, Oriented, CN II-XII Intact, Normal Cognition, No Motor/Sensory Deficits Psychiatric: Normal Affect, Normal Mood Skin Exam: Warm, Dry, Intact, Normal Color, No Rash Course - Vital Signs Text/Narrative:: Dr. Rhodes called @ 0631h Last Recorded V/S: Last Vital Signs Temp 35.7 C L 10/01/20 05:43 Pulse 50 L 10/01/20 05:50 Resp 31 H 10/01/20 05:50 BP 128/42 L 10/01/20 05:50 Pulse Ox 90 L 10/01/20 05:50 - Orders/Labs/Meds Orders: Active Orders 24 hr Category Date Time Status BIPAP Adult [RT BiPAP/CPAP] [RC] ASDIRECTED Care 10/01/20 05:50 Active Chest 1V Frontal [CR] Stat Exams 10/01/20 05:48 Taken UA W/MICROSCOPIC [URIN] Stat Lab 10/01/20 05:48 Ordered Sodium Chloride 0.9% [Normal Saline] 1,000 ml Med 10/01/20 06:15 Active IV ASDIRECTED Sodium Chloride 0.9% [Saline Flush] Med 10/01/20 05:50 Active 10 ml FLUSH ASDIRECTED PRN Saline Lock Insert [OM.PC] Routine Oth 10/01/20 05:50 Ordered Medication Orders Sodium Chloride (Normal Saline) 1,000 mls @ 125 mls/hr IV ASDIRECTED JOSEPH Last Admin: 10/01/20 06:14 Dose: 125 mls/hr Documented by: ILIR Sodium Chloride (Saline Flush) 10 ml FLUSH ASDIRECTED PRN PRN Reason: Keep Vein Open Last Admin: 10/01/20 05:57 Dose: 10 ml Documented by: EHSAN Labs: Laboratory Tests 10/01/20 10/01/20 10/01/20 Range/Units 05:49 05:52 05:52 WBC 10.7 (4.5-11.0) K/uL RBC 4.32 (4.30-5.90) M/uL Hgb 12.6 (12.0-15.0) g/dL Hct 37.4 L (40.0-54.0) % MCV 87 (80-98) fL MCH 29 (27-31) pg MCHC 34 (32-36) % Plt Count 241 (150-400) K/uL PT (9.5-12.0) sec INR (0.80-1.20) Puncture Site Rt radial ABG pH 7.425 (7.350-7.450) ABG pCO2 39.0 (35.0-42.0) mmHg ABG pO2 56.4 L (75.0-100.0) mmHg ABG HCO3 25.1 (22.0-26.0) mmol/L ABG Total CO2 22.5 L (23.0-27.0) mmol/L ABG O2 Saturation 88.1 L (95.0-98.0) % ABG O2 Content 15.0 (15.0-23.0) %vol ABG Base Excess 1.2 mm/L ABG Hemoglobin 12.3 L (13.5-18.0) g/dL ABG Oxyhemoglobin 86.4 % ABG Carboxyhemoglobin 1.1 (0.0-1.6) % ABG Methemoglobin 0.8 % Dinesh Test Passed O2 Delivery Device Non rebr mask Oxygen Flow Rate 10.0 L Sodium 118 L* (140-148) mmol/L Potassium 3.8 (3.6-5.2) mmol/L Chloride 84 L (100-108) mmol/L Carbon Dioxide 29 (21-32) mmol/L Anion Gap 8.8 (5.0-14.0) mmol/L BUN 18 (7-18) mg/dL Creatinine 0.9 (0.8-1.3) mg/dL Est Cr Clr Drug Dosing 46.59 mL/min Estimated GFR (MDRD) > 60 (>60) Glucose 143 H (74-106) mg/dL Calcium 8.2 L (8.5-10.1) mg/dL Troponin I (0.000-0.056) ng/mL C-Reactive Protein (0.0-0.3) mg/dL NT-Pro-B Natriuret Pep (5-450) pg/mL SARS CoV-2 RNA Rapid LISSA 10/01/20 10/01/20 10/01/20 Range/Units 05:52 05:52 06:11 WBC (4.5-11.0) K/uL RBC (4.30-5.90) M/uL Hgb (12.0-15.0) g/dL Hct (40.0-54.0) % MCV (80-98) fL MCH (27-31) pg MCHC (32-36) % Plt Count (150-400) K/uL PT 26.6 H (9.5-12.0) sec INR 2.48 H (0.80-1.20) Puncture Site ABG pH (7.350-7.450) ABG pCO2 (35.0-42.0) mmHg ABG pO2 (75.0-100.0) mmHg ABG HCO3 (22.0-26.0) mmol/L ABG Total CO2 (23.0-27.0) mmol/L ABG O2 Saturation (95.0-98.0) % ABG O2 Content (15.0-23.0) %vol ABG Base Excess mm/L ABG Hemoglobin (13.5-18.0) g/dL ABG Oxyhemoglobin % ABG Carboxyhemoglobin (0.0-1.6) % ABG Methemoglobin % Dinesh Test O2 Delivery Device Oxygen Flow Rate L Sodium (140-148) mmol/L Potassium (3.6-5.2) mmol/L Chloride (100-108) mmol/L Carbon Dioxide (21-32) mmol/L Anion Gap (5.0-14.0) mmol/L BUN (7-18) mg/dL Creatinine (0.8-1.3) mg/dL Est Cr Clr Drug Dosing mL/min Estimated GFR (MDRD) (>60) Glucose (74-106) mg/dL Calcium (8.5-10.1) mg/dL Troponin I < 0.017 (0.000-0.056) ng/mL C-Reactive Protein 3.17 H (0.0-0.3) mg/dL NT-Pro-B Natriuret Pep 2516 H (5-450) pg/mL SARS CoV-2 RNA Rapid LISSA Negative Meds: Medications Generic Name Dose Route Start Last Admin Trade Name Freq PRN Reason Stop Dose Admin Sodium Chloride 1,000 mls @ 125 mls/hr 10/01/20 06:15 10/01/20 06:14 Normal Saline IV 125 mls/hr ASDIRECTED JOSEPH Administration Sodium Chloride 10 ml 10/01/20 05:50 10/01/20 05:57 Saline Flush FLUSH 10 ml ASDIRECTED PRN Administration Keep Vein Open - Radiology Interpretation Free Text/Narrative:: CXR-bilateral infiltrates Departure - Departure Time of Disposition: 07:00 Disposition: Admitted As Inpatient 66 Condition: Serious Clinical Impression: Hypoxia, Hyponatremia Pulmonary edema Qualifiers: Chronicity: acute Qualified Code(s): J81.0 - Acute pulmonary edema - Discharge Information *PRESCRIPTION DRUG MONITORING PROGRAM REVIEWED*: Not Applicable *COPY OF PRESCRIPTION DRUG MONITORING REPORT IN PATIENT SHANTI: Not Applicable Referrals: PCP,None [Primary Care Provider] - Forms: ED Department Discharge Sepsis Event Note (ED) - Evaluation Sepsis Screening Result: No Definite Risk - Focused Exam Vital Signs: Vital Signs Temp Pulse Resp BP Pulse Ox 10/01/20 05:50 50 L 31 H 128/42 L 90 L 10/01/20 05:43 35.7 C L 73 32 H 154/57 H 85 L - My Orders Last 24 Hours: My Active Orders 10/01/20 05:48 Chest 1V Frontal [CR] Stat UA W/MICROSCOPIC [URIN] Stat 10/01/20 05:50 BIPAP Adult [RT BiPAP/CPAP] [RC] ASDIRECTED Sodium Chloride 0.9% [Saline Flush] 10 ml FLUSH ASDIRECTED PRN Saline Lock Insert [OM.PC] Routine 10/01/20 06:15 Sodium Chloride 0.9% [Normal Saline] 1,000 ml IV ASDIRECTED - Assessment/Plan Last 24 Hours: My Active Orders 10/01/20 05:48 Chest 1V Frontal [CR] Stat UA W/MICROSCOPIC [URIN] Stat 10/01/20 05:50 BIPAP Adult [RT BiPAP/CPAP] [RC] ASDIRECTED Sodium Chloride 0.9% [Saline Flush] 10 ml FLUSH ASDIRECTED PRN Saline Lock Insert [OM.PC] Routine 10/01/20 06:15 Sodium Chloride 0.9% [Normal Saline] 1,000 ml IV ASDIRECTED
[2020-10-01] MEDS ORDERED: Sodium Chloride 0.9% 1,000 ML IV SCH (06:15)
[2020-10-01] MEDS ORDERED: Lidocaine 2% Jelly 10 ML Urojet MUCMEM ONE (06:41)
[2020-10-01] MEDS ORDERED: Furosemide 40 MG/4 ML VIAL IVPUSH ONE (08:30)
--- NOTE | 2020-10-01 08:41 | PCM.HP.2 ---
H&P History of Present Illness - General Date of Service: 10/01/20 Admit Problem/Dx: Admission Diagnosis/Problem Admission Diagnosis/Problem Congestive heart failure Source of Information: Patient, Provider History Limitations: Reports: No Limitations - History of Present Illness Initial Comments - Free Text/Narative: CC: I was short of breath HPI: Bryce presents to the emergency room today with about 1 week of progressive shortness of breath and weakness. He is currently wearing a noninvasive positive pressure ventilation mask making conversation a little bit difficult. He is able to tell me that he has steadily gone downhill. He has not been coughing much. Appetite has been okay. He does not think he has had any fevers. He has noticed that his legs have been quite swollen. His daughter has been giving him extra furosemide thinking this may be congestive heart failure but he has continued to get worse rather than better. He has had progressive weakness and more difficulty getting around. He has not noticed a change in bowel or bladder habits. No obvious sick contacts that he is aware of and says he does not go anywhere. No reports of abdominal pain, nausea or vomiting. Work-up in the emergency room revealed significant hypoxic respiratory failure. Even with a nonrebreather he was still hypoxic so noninvasive ventilation was initiated. Chest x-ray shows probable bilateral pneumonia and possibly a component of congestive heart failure. He received furosemide in the emergency room. He will be admitted to the intensive care unit for further management. - Related Data Allergies/Adverse Reactions: Allergies Allergy/AdvReac Type Severity Reaction Status Date / Time No Known Allergies Allergy Verified 10/01/20 05:48 Home Medications: Home Meds Albuterol Sulfate 3 ml INH Q4H PRN 01/31/18 [History] Losartan Potassium 0.5 tab PO DAILY 01/31/18 [History] carvediloL [Carvedilol] 1 tab PO BID 01/31/18 [History] Acetaminophen with Codeine [Acetaminophen-Cod #3] 1 tab PO Q6H PRN 11/02/18 [History] Amiodarone [Cordarone] 200 mg PO DAILY 11/02/18 [History] Warfarin [Coumadin] 2.5 mg PO ASDIRECTED 11/02/18 [History] Furosemide 20 mg PO DAILY #30 tablet 11/04/18 [Rx] Past Medical History 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 of Hearing Cardiovascular History: Reports: Afib, Automatic Implantable Cardioverter Defibrillators, Heart Failure, Pacemaker, SOB on Exertion Other Cardiovascular History: pacer/defib Respiratory History: Reports: SOB Gastrointestinal History: Reports: GERD Musculoskeletal History: Reports: Arthritis Hematologic History: Reports: Anticoagulation Therapy Dermatologic History: Reports: Other (See Below) Other Dermatologic History: dry feet - Past Surgical History HEENT Surgical History: Reports: Cataract Surgery Social & Family History - Family History Cardiac: Denies: CAD - Tobacco Use Tobacco Use Status *Q: Never Tobacco User - Caffeine Use Caffeine Use: Reports: None - Recreational Drug Use Recreational Drug Use: No - Living Situation & Occupation Living situation: Reports: with Family (lives in his own home in [place], [place], h as Daughter Krista Steven living in home to [facility] with ADL.has 3 step children-not involved in care, and 2 daughters.) Occupation: Retired H&P Review of Systems - Review of Systems: Review Of Systems: See Below Free Text/Narrative: A complete 12 point review of systems was obtained. Pertinent positives and negatives are noted in the history of present illness. All other systems were reviewed and were negative except as noted. Exam - Exam Exam: See Below - Vital Signs Vital Signs: Last Vital Signs Temp 35.7 C L 10/01/20 05:43 Pulse 50 L 10/01/20 06:37 Resp 24 H 10/01/20 06:37 BP 120/56 L 10/01/20 06:37 Pulse Ox 96 10/01/20 06:37 Weight: 68.039 kg - Exam Quality Assessment: Supplemental Oxygen General: Alert, Cooperative, Lethargic. No: Mild Distress HEENT: No: Mucosa Moist & [place] (dry), Scleral Icterus Neck: Supple, Trachea Midline Lungs: Crackles (diffuse ). No: Normal Respiratory Effort (increased work of breathing ) Cardiovascular: Regular Rhythm, Bradycardia, Systolic Murmur (LUSB) GI/Abdominal Exam: Normal Bowel Sounds, Soft, Non-Tender, No Distention Extremities: Pedal Edema (pitting edema to the thighs bilaterally ). No: Increased Warmth Skin: Warm, Dry Neuro Extensive - Mental Status: Alert, Nl Response to Commands Neuro Extensive - Motor, Sensory, Reflexes: No: Dysarthria, Abnormal Motor, Tremor Psychiatric: Alert, Normal Affect - Patient Data Lab Results Last 24 hrs: Laboratory Results - last 24 hr 10/01/20 10/01/20 10/01/20 Range/Units 05:49 05:52 05:52 WBC 10.7 (4.5-11.0) K/uL RBC 4.32 (4.30-5.90) M/uL Hgb 12.6 (12.0-15.0) g/dL Hct 37.4 L (40.0-54.0) % MCV 87 (80-98) fL MCH 29 (27-31) pg MCHC 34 (32-36) % Plt Count 241 (150-400) K/uL PT (9.5-12.0) sec INR (0.80-1.20) Puncture Site Rt radial ABG pH 7.425 (7.350-7.450) ABG pCO2 39.0 (35.0-42.0) mmHg ABG pO2 56.4 L (75.0-100.0) mmHg ABG HCO3 25.1 (22.0-26.0) mmol/L ABG Total CO2 22.5 L (23.0-27.0) mmol/L ABG O2 Saturation 88.1 L (95.0-98.0) % ABG O2 Content 15.0 (15.0-23.0) %vol ABG Base Excess 1.2 mm/L ABG Hemoglobin 12.3 L (13.5-18.0) g/dL ABG Oxyhemoglobin 86.4 % ABG Carboxyhemoglobin 1.1 (0.0-1.6) % ABG Methemoglobin 0.8 % Dinesh Test Passed O2 Delivery Device Non rebr mask Oxygen Flow Rate 10.0 L Sodium 118 L* (140-148) mmol/L Potassium 3.8 (3.6-5.2) mmol/L Chloride 84 L (100-108) mmol/L Carbon Dioxide 29 (21-32) mmol/L Anion Gap 8.8 (5.0-14.0) mmol/L BUN 18 (7-18) mg/dL Creatinine 0.9 (0.8-1.3) mg/dL Est Cr Clr Drug Dosing 46.59 mL/min Estimated GFR (MDRD) > 60 (>60) Glucose 143 H (74-106) mg/dL Calcium 8.2 L (8.5-10.1) mg/dL Troponin I (0.000-0.056) ng/mL C-Reactive Protein (0.0-0.3) mg/dL NT-Pro-B Natriuret Pep (5-450) pg/mL Urine Color (YELLOW) Urine Appearance (CLEAR) Urine pH (5.0-8.0) Ur Specific [place] (1.008-1.030) Urine Protein (NEGATIVE) mg/dL Urine Glucose (UA) (NEGATIVE) mg/dL Urine Ketones (NEGATIVE) mg/dL Urine Occult Blood (NEGATIVE) Urine Nitrite (NEGATIVE) Urine Bilirubin (NEGATIVE) Urine Urobilinogen (0.2-1.0) EU/dL Ur Leukocyte Esterase (NEGATIVE) Urine RBC (0-5) Urine WBC (0-5) Ur Epithelial Cells Amorphous Sediment Urine Bacteria Urine Mucus SARS-CoV-2 RNA (LISSA) (NEGATIVE) SARS CoV-2 RNA Rapid LISSA 10/01/20 10/01/20 10/01/20 Range/Units 05:52 05:52 06:11 WBC (4.5-11.0) K/uL RBC (4.30-5.90) M/uL Hgb (12.0-15.0) g/dL Hct (40.0-54.0) % MCV (80-98) fL MCH (27-31) pg MCHC (32-36) % Plt Count (150-400) K/uL PT 26.6 H (9.5-12.0) sec INR 2.48 H (0.80-1.20) Puncture Site ABG pH (7.350-7.450) ABG pCO2 (35.0-42.0) mmHg ABG pO2 (75.0-100.0) mmHg ABG HCO3 (22.0-26.0) mmol/L ABG Total CO2 (23.0-27.0) mmol/L ABG O2 Saturation (95.0-98.0) % ABG O2 Content (15.0-23.0) %vol ABG Base Excess mm/L ABG Hemoglobin (13.5-18.0) g/dL ABG Oxyhemoglobin % ABG Carboxyhemoglobin (0.0-1.6) % ABG Methemoglobin % Dinesh Test O2 Delivery Device Oxygen Flow Rate L Sodium (140-148) mmol/L Potassium (3.6-5.2) mmol/L Chloride (100-108) mmol/L Carbon Dioxide (21-32) mmol/L Anion Gap (5.0-14.0) mmol/L BUN (7-18) mg/dL Creatinine (0.8-1.3) mg/dL Est Cr Clr Drug Dosing mL/min Estimated GFR (MDRD) (>60) Glucose (74-106) mg/dL Calcium (8.5-10.1) mg/dL Troponin I < 0.017 (0.000-0.056) ng/mL C-Reactive Protein 3.17 H (0.0-0.3) mg/dL NT-Pro-B Natriuret Pep 2516 H (5-450) pg/mL Urine Color (YELLOW) Urine Appearance (CLEAR) Urine pH (5.0-8.0) Ur Specific [place] (1.008-1.030) Urine Protein (NEGATIVE) mg/dL Urine Glucose (UA) (NEGATIVE) mg/dL Urine Ketones (NEGATIVE) mg/dL Urine Occult Blood (NEGATIVE) Urine Nitrite (NEGATIVE) Urine Bilirubin (NEGATIVE) Urine Urobilinogen (0.2-1.0) EU/dL Ur Leukocyte Esterase (NEGATIVE) Urine RBC (0-5) Urine WBC (0-5) Ur Epithelial Cells Amorphous Sediment Urine Bacteria Urine Mucus SARS-CoV-2 RNA (LISSA) (NEGATIVE) SARS CoV-2 RNA Rapid LISSA Negative 10/01/20 10/01/20 Range/Units 06:47 07:00 WBC (4.5-11.0) K/uL RBC (4.30-5.90) M/uL Hgb (12.0-15.0) g/dL Hct (40.0-54.0) % MCV (80-98) fL MCH (27-31) pg MCHC (32-36) % Plt Count (150-400) K/uL PT (9.5-12.0) sec INR (0.80-1.20) Puncture Site ABG pH (7.350-7.450) ABG pCO2 (35.0-42.0) mmHg ABG pO2 (75.0-100.0) mmHg ABG HCO3 (22.0-26.0) mmol/L ABG Total CO2 (23.0-27.0) mmol/L ABG O2 Saturation (95.0-98.0) % ABG O2 Content (15.0-23.0) %vol ABG Base Excess mm/L ABG Hemoglobin (13.5-18.0) g/dL ABG Oxyhemoglobin % ABG Carboxyhemoglobin (0.0-1.6) % ABG Methemoglobin % Dinesh Test O2 Delivery Device Oxygen Flow Rate L Sodium (140-148) mmol/L Potassium (3.6-5.2) mmol/L Chloride (100-108) mmol/L Carbon Dioxide (21-32) mmol/L Anion Gap (5.0-14.0) mmol/L BUN (7-18) mg/dL Creatinine (0.8-1.3) mg/dL Est Cr Clr Drug Dosing mL/min Estimated GFR (MDRD) (>60) Glucose (74-106) mg/dL Calcium (8.5-10.1) mg/dL Troponin I (0.000-0.056) ng/mL C-Reactive Protein (0.0-0.3) mg/dL NT-Pro-B Natriuret Pep (5-450) pg/mL Urine Color Yellow (YELLOW) Urine Appearance Slightly cloudy A (CLEAR) Urine pH 6.0 (5.0-8.0) Ur Specific [place] 1.015 (1.008-1.030) Urine Protein Negative (NEGATIVE) mg/dL Urine Glucose (UA) Negative (NEGATIVE) mg/dL Urine Ketones Negative (NEGATIVE) mg/dL Urine Occult Blood Negative (NEGATIVE) Urine Nitrite Negative (NEGATIVE) Urine Bilirubin Negative (NEGATIVE) Urine Urobilinogen 1.0 (0.2-1.0) EU/dL Ur Leukocyte Esterase Negative (NEGATIVE) Urine RBC Not seen (0-5) Urine WBC Not seen (0-5) Ur Epithelial Cells Not seen Amorphous Sediment Moderate Urine Bacteria Not seen Urine Mucus Not seen SARS-CoV-2 RNA (LISSA) Negative (NEGATIVE) SARS CoV-2 RNA Rapid LISSA Result Diagrams: 10/01/20 05:52 10/01/20 05:52 Imaging Impressions Last 24 hrs: CXR-image personally reviewed and compared to 2009-peripheral opacities are noted R>L. image is slightly rotated. No obvious mass. Small left effusion. Sepsis Event Note - Evaluation Sepsis Screening Result: No Definite Risk - Focused Exam Vital Signs: Vital Signs Temp Pulse Resp BP Pulse Ox 10/01/20 06:37 50 L 24 H 120/56 L 96 10/01/20 05:50 50 L 31 H 128/42 L 90 L 10/01/20 05:43 35.7 C L 73 32 H 154/57 H 85 L *Q Meaningful Use (ADM) - VTE Risk Assess *Q Each Risk Factor Represents 1 Point: Swollen Legs, Current, Obesity ( BMI > 25 kg/m2), Congestive heart failure (CHF) Total Score 1 Point Risk Factors: 3 Each Risk Factor Represents 2 Points: None Total Score 2 Point Risk Factors: 0 Each Risk Factor Represents 3 Points: Age 75 Years or Greater Total Score 3 Point Risk Factors: 3 Each Risk Factor Represents 5 Points: None Total Score 5 Point Risk Factors: 0 Venous Thromboembolism Risk Factor Score *Q: 6 - Problem List (1) Bilateral pneumonia SNOMED Code(s): 346227191 ICD Code: J18.9 - PNEUMONIA, UNSPECIFIED ORGANISM Status: Acute Current Visit: Yes Qualifiers: Pneumonia type: due to unspecified organism Lung location: lower lobe of lung Qualified Code(s): J18.9 - Pneumonia, unspecified organism (2) Congestive heart failure SNOMED Code(s): 80677113 ICD Code: I50.9 - HEART FAILURE, UNSPECIFIED Status: Acute Priority: High Current Visit: No Qualifiers: Heart failure type: unspecified Heart failure chronicity: acute on chronic Qualified Code(s): I50.9 - Heart failure, unspecified (3) Acute respiratory failure with hypoxia SNOMED Code(s): 45313773, 616853584 ICD Code: J96.01 - ACUTE RESPIRATORY FAILURE WITH HYPOXIA Status: Acute Current Visit: Yes (4) Hyponatremia SNOMED Code(s): 93052339 ICD Code: E87.1 - HYPO-OSMOLALITY AND HYPONATREMIA Status: Acute Current Visit: Yes (5) Atrial fibrillation SNOMED Code(s): 02787106 ICD Code: I48.91 - UNSPECIFIED ATRIAL FIBRILLATION Status: Acute Current Visit: No Qualifiers: Atrial fibrillation type: permanent Qualified Code(s): I48.21 - Permanent atrial fibrillation Problem List Initiated/Reviewed/Updated: Yes Orders Last 24hrs: Active Orders 24 hr Category Date Time Status Patient Status Manage Transfer [TRANSFER] Routine ADT 10/01/20 08:33 Ordered BIPAP Adult [RT BiPAP/CPAP] [RC] ASDIRECTED Care 10/01/20 05:50 Active Hernandez Catheter Insertion [Insert Urinary Catheter] [OM. Care 10/01/20 06:45 Ordered PC] Q24H Urinary Catheter Assessment [RC] ASDIRECTED Care 10/01/20 06:41 Active Chest 1V Frontal [CR] Stat Exams 10/01/20 05:48 Taken Chest wo Cont [CT] Stat Exams 10/01/20 08:29 Ordered Sodium Chloride 0.9% [Normal Saline] 1,000 ml Med 10/01/20 06:15 Active IV ASDIRECTED Sodium Chloride 0.9% [Saline Flush] Med 10/01/20 05:50 Active 10 ml FLUSH ASDIRECTED PRN Saline Lock Insert [OM.PC] Routine Oth 10/01/20 05:50 Ordered Resuscitation Status Routine Resus Stat 10/01/20 08:35 Ordered Medication Orders Sodium Chloride (Normal Saline) 1,000 mls @ 125 mls/hr IV ASDIRECTED JOSEPH Last Admin: 10/01/20 06:14 Dose: 125 mls/hr Documented by: ILIR Sodium Chloride (Saline Flush) 10 ml FLUSH ASDIRECTED PRN PRN Reason: Keep Vein Open Last Admin: 10/01/20 05:57 Dose: 10 ml Documented by: EHSAN Assessment/Plan Comment:: ASSESSMENT AND PLAN - Bilateral pneumonia-complicated by acute respiratory failure with hypoxia. Probable contribution from congestive heart failure as discussed below. No fevers. No obvious sick contacts. Significant respiratory compromise at this time. 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 He has severe lower extremity edema. JVD is difficult to assess with the noninvasive ventilation. -Furosemide given in the emergency room -Reassess volume status this afternoon -Continue beta-maddy but reduce dose because of bradycardia Chronic atrial fibrillation-status post pacemaker placement. Rate control good at this time. He is chronically anticoagulated. -Beta-maddy as above -Continue warfarin Maintenance issues - - DVT prophylaxis -warfarin - GI prophylaxis -not indicated - Nutrition -low-sodium - Hernandez catheter -placed in the emergency room for strict intake and output monitoring CODE STATUS -DNR/DNI Admission justification -this patient will be admitted for inpatient services and is medically appropriate meeting medical necessity for inpatient admission as outlined in my documentation. I reasonably expect the patient will require inpatient services that span a period time over 2 midnights. I reasonably expect this patient to be discharged or transferred within 96 hours after admission to the Critical [facility]. Disposition -I would anticipate discharge to a residential facility if he survives the hospital stay. Primary care physician -Dr Conrado Rhodes M.D. - Mortality Measure Prognosis:: Poor
[2020-10-01] MEDS ORDERED: Albuterol 0.083% 2.5 MG/3 ML Neb Soln NEB PRN (09:42)
[2020-10-01] MEDS ORDERED: Acetaminophen 325 MG Tab PO PRN (09:42)
[2020-10-01] MEDS ORDERED: Ondansetron 4 MG/2 ML SDV IV PRN (09:42)
[2020-10-01] MEDS ORDERED: Magnesium Hydroxide 400 MG/5 ML Susp 30 ML Cup PO PRN (09:42)
[2020-10-01] MEDS ORDERED: Morphine 2 MG/ML SYRINGE IVPUSH PRN (09:42)
[2020-10-01] MEDS ORDERED: Acetaminophen/Codeine 300-30 MG Tab PO PRN (09:42)
[2020-10-01] MEDS ORDERED: LORazepam 2 MG/ML SDV IVPUSH PRN (09:42)
[2020-10-01] MEDS ORDERED: Ondansetron 4 MG Tab.DIS PO PRN (09:42)
--- NOTE | 2020-10-01 10:26 | CRLCT ---
INDICATION: Shortness of breath. Hypoxia. Respiratory failure. TECHNIQUE: CT chest without contrast. COMPARISON: November 02, 2018. FINDINGS: Lungs and pleura: Diffuse bilateral air space infiltrates are most severe in the lower lungs. Small bilateral pleural effusions. No pneumothorax. Heart and vasculature: Stable cardiomegaly. Great vessels normal in caliber.Coronary artery atherosclerosis is present. AICD is present. Lymph nodes/mediastinum: No mediastinal, hilar, or axillary adenopathy. Thyroid gland is normal. Chest wall: No masses. Upper abdomen: Interval increase in size of heterogeneous liver mass measuring 9 cm, previously measuring 5 cm. Bones: Unremarkable for age. IMPRESSION: 1. Severe bilateral pneumonia. 2. Small bilateral pleural effusions 3. Interval increase in size of the previously seen liver mass. A slow growing neoplasm is possible. Further evaluation with MRI is recommended. Dictated by Jw Chavez MD @ 10/01/2020 10:25:52 AM Please note that all CT scans at this facility use dose modulation, iterative reconstruction, and/or weight-based dosing when appropriate to reduce radiation dose to as low as reasonably achievable. Dictated by: Jw Chavez MD @ 10/01/2020 10:25:56 (Electronically Signed)
[2020-10-01] MEDS: Amiodarone 200 MG Tab PO SCH (11:16)
[2020-10-01] MEDS: Carvedilol 12.5 MG Tab PO SCH ×2 (11:16→20:47)
[2020-10-01] MEDS: Doxycycline 100 MG in Sodium Chloride 0.9% 100 ML IV SCH ×2 (11:19→23:08)
[2020-10-01] MEDS: cefTRIAXone 1 GM in Sodium Chloride 0.9% 50 ML IV SCH (11:47)
[2020-10-01] MEDS: Warfarin 2.5 MG Tab PO SCH (13:50)
[2020-10-01] MEDS: Melatonin 3 MG Tab PO SCH (20:47)
[2020-10-02] MEDS: Amiodarone 200 MG Tab PO SCH (09:08)
[2020-10-02] MEDS: Carvedilol 12.5 MG Tab PO SCH ×2 (09:08→20:24)
[2020-10-02] MEDS ORDERED: Furosemide 40 MG/4 ML VIAL IVPUSH ONE (10:37)
--- NOTE | 2020-10-02 10:44 | PCM.PN ---
- General Info Date of Service: 10/02/20 Subjective Update: Mr. Angeles shown modest improvement since admission, subjectively less short of breath. He has continued to use the noninvasive positive pressure ventilation through the night. This morning he is sitting in the chair on 4 L/min via nasal cannula with good saturations. Appetite seems to be fairly good and he denies other discomfort. Functional Status: Reports: Tolerating Diet, Urinating - Review of Systems General: Reports: Weakness, Fatigue. Denies: Fever, Chills Pulmonary: Reports: Shortness of Breath. Denies: Pleuritic Chest Pain, Cough, Sputum, Hemoptysis, Wheezing Cardiovascular: Reports: Dyspnea on Exertion, Edema. Denies: Chest Pain, Palpitations, Orthopnea, PND, Lightheadedness Gastrointestinal: Reports: No Symptoms Genitourinary: Reports: No Symptoms - Patient Data Vitals - Most Recent: Last Vital Signs Temp 97.8 F 10/02/20 10:21 Pulse 50 L 10/02/20 10:21 Resp 22 H 10/02/20 10:21 BP 111/40 L 10/02/20 10:21 Pulse Ox 94 L 10/02/20 10:21 Weight - Most Recent: 149 lb 14.629 oz I&O - Last 24 Hours: Intake & Output 10/01/20 10/02/20 10/02/20 22:59 06:59 14:59 Intake Total 390 100 360 Output Total 750 275 Balance -360 -175 360 Lab Results Last 24 Hours: Laboratory Results - last 24 hr 10/02/20 10/02/20 Range/Units 05:45 05:45 WBC 12.8 H (4.5-11.0) K/uL RBC 3.77 L (4.30-5.90) M/uL Hgb 10.6 L D (12.0-15.0) g/dL Hct 32.5 L (40.0-54.0) % MCV 86 (80-98) fL MCH 28 (27-31) pg MCHC 33 (32-36) % Plt Count 217 (150-400) K/uL Sodium 122 L (140-148) mmol/L Potassium 3.4 L (3.6-5.2) mmol/L Chloride 89 L (100-108) mmol/L Carbon Dioxide 26 (21-32) mmol/L Anion Gap 10.4 (5.0-14.0) mmol/L BUN 21 H (7-18) mg/dL Creatinine 1.2 (0.8-1.3) mg/dL Est Cr Clr Drug Dosing TNP Estimated GFR (MDRD) 57 L (>60) Glucose 114 H (74-106) mg/dL Calcium 8.2 L (8.5-10.1) mg/dL Magnesium 1.9 (1.8-2.4) mg/dL Med Orders - Current: Current Medications Acetaminophen (Tylenol) 650 mg PO Q4H PRN PRN Reason: Pain (Mild 1-3)/fever Acetaminophen/Codeine Phosphate (Tylenol With Codeine No.3 300mg/30mg) 1 tab PO Q6H PRN PRN Reason: Pain (moderate 4-6) Albuterol (Proventil Neb Soln) 2.5 mg NEB Q4H PRN PRN Reason: Shortness Of Breath/wheezing Amiodarone HCl (Cordarone) 200 mg PO DAILY [facility] Last Admin: 10/02/20 09:08 Dose: 200 mg Documented by: Carvedilol (Coreg) 12.5 mg PO BID [facility] Last Admin: 10/02/20 09:08 Dose: 12.5 mg Documented by: Furosemide (Lasix) 40 mg IVPUSH NOW ONE Stop: 10/02/20 10:38 Ceftriaxone Sodium 1 gm/ (Sodium Chloride) 50 mls @ 100 mls/hr IV Q24H [facility] Last Admin: 10/01/20 11:47 Dose: 100 mls/hr Documented by: Doxycycline Hyclate 100 mg/ (Sodium Chloride) 100 mls @ 100 mls/hr IV Q12H [facility] Last Admin: 10/01/20 23:08 Dose: 100 mls/hr Documented by: Lorazepam (Ativan) 0.5 mg IVPUSH Q4H PRN PRN Reason: Nausea/Vomiting Magnesium Hydroxide (Milk Of Magnesia) 30 ml PO Q12H PRN PRN Reason: Constipation Melatonin (Melatonin) 9 mg PO BEDTIME [facility] Last Admin: 10/01/20 20:47 Dose: 9 mg Documented by: Morphine Sulfate (Morphine) 2 mg IVPUSH Q2H PRN PRN Reason: Pain (severe 7-10) Ondansetron HCl (Zofran) 4 mg IV Q6H PRN PRN Reason: Nausea/Vomiting Ondansetron HCl (Zofran Odt) 4 mg PO Q6H PRN PRN Reason: Nausea able to take PO Potassium Chloride (Klor-Con M20) 40 meq PO ONETIME ONE Stop: 10/02/20 10:38 Potassium Chloride (Klor-Con M20) 40 meq PO ONETIME ONE Stop: 10/02/20 17:01 Senna/Docusate Sodium (Senna Plus) 1 tab PO BID PRN PRN Reason: Constipation Sodium Chloride (Saline Flush) 10 ml FLUSH ASDIRECTED PRN PRN Reason: Keep Vein Open Last Admin: 10/01/20 05:57 Dose: 10 ml Documented by: Warfarin Sodium (Coumadin) 1.25 mg PO DAILY@1300 [facility] Last Admin: 10/01/20 13:50 Dose: 1.25 mg Documented by: Discontinued Medications Furosemide (Lasix) 40 mg IVPUSH NOW ONE Stop: 10/01/20 08:31 Last Admin: 10/01/20 08:40 Dose: 40 mg Documented by: Sodium Chloride (Normal Saline) 1,000 mls @ 125 mls/hr IV ASDIRECTED [facility] Last Admin: 10/01/20 06:14 Dose: 125 mls/hr Documented by: Lidocaine HCl (Xylocaine 2% Jelly) 10 ml MUCMEM ONETIME ONE Stop: 10/01/20 06:42 Last Admin: 10/01/20 06:51 Dose: 10 ml Documented by: - Exam Quality Assessment: Supplemental Oxygen, DVT Prophylaxis General: Alert, Oriented, Cooperative, Mild Distress Lungs: Decreased Breath Sounds, Rales, Rhonchi. No: Crackles, Wheezing Cardiovascular: Regular Rhythm, No Murmurs, Bradycardia GI/Abdominal Exam: Soft, Non-Tender, No Organomegaly, No Distention Extremities: Non-Tender, Pedal Edema Sepsis Event Note - Evaluation Sepsis Screening Result: No Definite Risk - Focused Exam Vital Signs: Vital Signs Temp Pulse Pulse Resp BP BP Pulse Ox 10/02/20 10:21 97.8 F 50 L 22 H 111/40 L 94 L 10/02/20 10:00 50 L 21 H 92/37 L 95 10/02/20 09:35 10/02/20 09:29 92 L 10/02/20 09:08 50 L 113/42 L 10/02/20 07:56 98 F 53 L 21 H 106/43 L 96 10/02/20 06:00 50 L 17 106/43 L 96 10/02/20 04:00 50 L 22 H 96/40 L 96 10/02/20 02:00 96.3 F L 51 L 19 100/39 L 97 10/02/20 00:00 50 L 17 106/44 L 98 Pulse Ox 10/02/20 10:21 10/02/20 10:00 10/02/20 09:35 93 L 10/02/20 09:29 10/02/20 09:08 10/02/20 07:56 10/02/20 06:00 10/02/20 04:00 10/02/20 02:00 10/02/20 00:00 - Problem List Review Problem List Initiated/Reviewed/Updated: Yes - My Orders Last 24 Hours: My Active Orders 10/02/20 10:37 Furosemide [Lasix] 40 mg IVPUSH NOW ONE Potassium Chloride [Klor-Con M20] 40 meq PO ONETIME ONE 10/02/20 17:00 Potassium Chloride [Klor-Con M20] 40 meq PO ONETIME ONE 10/03/20 05:00 BASIC METABOLIC PANEL,BMP [CHEM] Timed CBC WITH AUTO DIFF [HEME] Timed INR,PT,PROTHROMBIN TIME [COAG] Timed - Plan Plan:: ASSESSMENT AND PLAN - Bilateral pneumonia-complicated by acute respiratory failure with hypoxia. Probable contribution from congestive heart failure as discussed below. No fevers. No obvious sick contacts. Significant respiratory compromise at this time. 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 Edema has improved with diuresis -Furosemide 20 mg IV today -Continue beta-maddy but reduce dose because of bradycardia Hyponatremia-improved with diuresis -Furosemide as above Chronic atrial fibrillation-status post pacemaker placement. Rate control good at this time. He is chronically anticoagulated. -Beta-maddy as above -Continue warfarin -INR in a.m. Maintenance issues - DVT prophylaxis -warfarin - GI prophylaxis -not indicated - Nutrition -low-sodium - Hernandez catheter -placed in the emergency room for strict intake and output mon itoring CODE STATUS -DNR/DNI Admission justification -this patient will be admitted for inpatient services and is medically appropriate meeting medical necessity for inpatient admission as outlined in my documentation. I reasonably expect the patient will require inpatient services that span a period time over 2 midnights. I reasonably expect this patient to be discharged or transferred within 96 hours after admission to the [facility]. Disposition -I would anticipate discharge to a nursing home facility if he survives the hospital stay. Primary care physician -Dr Conrado Smith
[2020-10-02] MEDS: Doxycycline 100 MG in Sodium Chloride 0.9% 100 ML IV SCH ×2 (10:56→22:33)
[2020-10-02] MEDS ORDERED: Potassium Chloride 20 MEQ Tab.ER PO ONE ×2 (11:00→17:00)
[2020-10-02] MEDS ORDERED: Furosemide 20 MG/2 ML VIAL IVPUSH ONE (11:00)
[2020-10-02] MEDS: Warfarin 2.5 MG Tab PO SCH (12:36)
[2020-10-02] MEDS: cefTRIAXone 1 GM in Sodium Chloride 0.9% 50 ML IV SCH (12:36)
[2020-10-02] MEDS: Sodium Chloride 0.9% 1,000 ML IV SCH (16:54)
[2020-10-02] MEDS: Melatonin 3 MG Tab PO SCH (20:24)
[2020-10-03] MEDS: Sodium Chloride 0.9% 1,000 ML IV SCH (06:11)
[2020-10-03] MEDS: Amiodarone 200 MG Tab PO SCH ×2 (09:58→13:46)
[2020-10-03] MEDS: Carvedilol 12.5 MG Tab PO SCH ×3 (09:58→20:59)
[2020-10-03] MEDS: Doxycycline 100 MG in Sodium Chloride 0.9% 100 ML IV SCH ×2 (10:51→22:56)
--- NOTE | 2020-10-03 12:25 | PCM.PN ---
- General Info Date of Service: 10/03/20 Subjective Update: Mr. Angeles brings difficulty with eating in that he often coughs and has difficulty with oxygen desaturation afterwards. Symptoms and findings make it very likely that he is aspirating with eating. Tried nectar thickened liquids as well as mechanical soft diet yesterday, unfortunately continues to have difficulty with eating. Functional Status: Reports: Urinating. Denies: Tolerating Diet - Review of Systems General: Reports: Weakness, Fatigue. Denies: Fever, Chills Pulmonary: Reports: Shortness of Breath, Cough. Denies: Pleuritic Chest Pain, Sputum, Hemoptysis, Wheezing Cardiovascular: Reports: Dyspnea on Exertion. Denies: Chest Pain, Palpitations, Orthopnea, PND, Edema, Lightheadedness Gastrointestinal: Reports: No Symptoms - Patient Data Vitals - Most Recent: Last Vital Signs Temp 96.9 F 10/03/20 08:00 Pulse 54 L 10/03/20 10:00 Resp 20 10/03/20 10:00 BP 120/52 L 10/03/20 10:00 Pulse Ox 93 L 10/03/20 10:00 Weight - Most Recent: 149 lb 14.629 oz I&O - Last 24 Hours: Intake & Output 10/02/20 10/03/20 10/03/20 22:59 06:59 14:59 Intake Total 240 1158 100 Output Total 200 400 Balance 40 758 100 Lab Results Last 24 Hours: Laboratory Results - last 24 hr 10/03/20 10/03/20 10/03/20 Range/Units 05:00 05:00 05:50 WBC 12.9 H (4.5-11.0) K/uL RBC 3.94 L (4.30-5.90) M/uL Hgb 11.7 L (12.0-15.0) g/dL Hct 34.5 L (40.0-54.0) % MCV 88 (80-98) fL MCH 30 (27-31) pg MCHC 34 (32-36) % Plt Count 182 (150-400) K/uL Neut % (Auto) 90 H (36-66) % Lymph % (Auto) 3 L (24-44) % [place] % (Auto) 7 H (2-6) % Eos % (Auto) 0 L (2-4) % Baso % (Auto) 0 (0-1) % PT 28.1 H (9.5-12.0) sec INR 2.63 H (0.80-1.20) Sodium 126 L (140-148) mmol/L Potassium 4.6 (3.6-5.2) mmol/L Chloride 93 L (100-108) mmol/L Carbon Dioxide 26 (21-32) mmol/L Anion Gap 11.6 (5.0-14.0) mmol/L BUN 31 H (7-18) mg/dL Creatinine 1.2 (0.8-1.3) mg/dL Est Cr Clr Drug Dosing 34.94 mL/min Estimated GFR (MDRD) 57 L (>60) Glucose 124 H (74-106) mg/dL Calcium 8.7 (8.5-10.1) mg/dL Med Orders - Current: Current Medications Acetaminophen (Tylenol) 650 mg PO Q4H PRN PRN Reason: Pain (Mild 1-3)/fever Acetaminophen/Codeine Phosphate (Tylenol With Codeine No.3 300mg/30mg) 1 tab PO Q6H PRN PRN Reason: Pain (moderate 4-6) Albuterol (Proventil Neb Soln) 2.5 mg NEB Q4H PRN PRN Reason: Shortness Of Breath/wheezing Amiodarone HCl (Cordarone) 200 mg PO DAILY [facility] Last Admin: 10/03/20 09:58 Dose: Not Given Documented by: Carvedilol (Coreg) 12.5 mg PO BID [facility] Last Admin: 10/03/20 09:58 Dose: Not Given Documented by: Furosemide (Lasix) 40 mg IVPUSH NOW ONE Stop: 10/03/20 12:22 Ceftriaxone Sodium 1 gm/ (Sodium Chloride) 50 mls @ 100 mls/hr IV Q24H [facility] Last Admin: 10/02/20 12:36 Dose: 100 mls/hr Documented by: Doxycycline Hyclate 100 mg/ (Sodium Chloride) 100 mls @ 100 mls/hr IV Q12H [facility] Last Admin: 10/03/20 10:51 Dose: 100 mls/hr Documented by: Sodium Chloride (Normal Saline) 1,000 mls @ 50 mls/hr IV ASDIRECTED [facility] Lorazepam (Ativan) 0.5 mg IVPUSH Q4H PRN PRN Reason: Nausea/Vomiting Magnesium Hydroxide (Milk Of Magnesia) 30 ml PO Q12H PRN PRN Reason: Constipation Melatonin (Melatonin) 9 mg PO BEDTIME [facility] Last Admin: 10/02/20 20:24 Dose: Not Given Documented by: Morphine Sulfate (Morphine) 2 mg IVPUSH Q2H PRN PRN Reason: Pain (severe 7-10) Ondansetron HCl (Zofran) 4 mg IV Q6H PRN PRN Reason: Nausea/Vomiting Ondansetron HCl (Zofran Odt) 4 mg PO Q6H PRN PRN Reason: Nausea able to take PO Senna/Docusate Sodium (Senna Plus) 1 tab PO BID PRN PRN Reason: Constipation Sodium Chloride (Saline Flush) 10 ml FLUSH ASDIRECTED PRN PRN Reason: Keep Vein Open Last Admin: 10/01/20 05:57 Dose: 10 ml Documented by: Warfarin Sodium (Coumadin) 1.25 mg PO DAILY@1300 [facility] Last Admin: 10/02/20 12:36 Dose: 1.25 mg Documented by: Discontinued Medications Furosemide (Lasix) 40 mg IVPUSH NOW ONE Stop: 10/01/20 08:31 Last Admin: 10/01/20 08:40 Dose: 40 mg Documented by: Furosemide (Lasix) 40 mg IVPUSH NOW ONE Stop: 10/02/20 10:38 Last Admin: 10/02/20 17:47 Dose: Not Given Documented by: Furosemide (Lasix) 20 mg IVPUSH NOW ONE Stop: 10/02/20 11:01 Last Admin: 10/02/20 10:56 Dose: 20 mg Documented by: Sodium Chloride (Normal Saline) 1,000 [facility]ls [facility] Admin: 10/01/20 06:14 Dose: 125 mls/hr Documented by: Sodium Chloride (Normal Saline) 1,000 mls @ 75 mls/hr IV ASDIRECTED [facility] Last Admin: 10/03/20 06:11 Dose: 75 mls/hr Documented by: Lidocaine HCl (Xylocaine 2% Jelly) 10 ml MUCMEM ONETIME ONE Stop: 10/01/20 06:42 Last Admin: 10/01/20 06:51 Dose: 10 ml Documented by: Potassium Chloride (Klor-Con M20) 40 meq PO ONETIME ONE Stop: 10/02/20 11:01 Last Admin: 10/02/20 10:56 Dose: 40 meq Documented by: Potassium Chloride (Klor-Con M20) 40 meq PO ONETIME ONE Stop: 10/02/20 17:01 Last Admin: 10/02/20 16:55 Dose: 40 meq Documented by: - Exam Quality Assessment: Supplemental Oxygen, DVT Prophylaxis General: Alert, Cooperative, Mild Distress Lungs: Normal Respiratory Effort, Decreased Breath Sounds, Rales, Rhonchi. No: Wheezing Cardiovascular: Regular Rate, Regular Rhythm, No Murmurs GI/Abdominal Exam: Soft, Non-Tender, No Organomegaly, No Distention Extremities: Non-Tender, Pedal Edema Sepsis Event Note - Evaluation Sepsis Screening Result: Severe Sepsis Risk - Focused Exam Vital Signs: Vital Signs Temp Pulse Pulse Resp BP BP Pulse Ox 10/03/20 10:00 54 L 20 120/52 L 93 L 10/03/20 09:58 51 L 125/52 L 10/03/20 09:00 94 L 10/03/20 08:00 96.9 F 60 21 H 124/55 L 86 L 10/03/20 06:00 24 H 132/49 L 96 10/03/20 04:00 98.1 F 26 H 132/52 L 94 L 10/03/20 02:00 97.8 F 22 H 128/57 L 94 L - Problem List Review Problem List Initiated/Reviewed/Updated: Yes - My Orders Last 24 Hours: My Active Orders 10/03/20 10:04 Air Mattress [Pressure Reduction Mattress] [OM.PC] Routine 10/03/20 Lunch NPO Now [Nothing per Oral Now Diet] [DIET] 10/03/20 12:14 Consult to Speech Language Pathology [KIER PLEATER Evaluation and Treatment] [CONS] Routine 10/03/20 12:15 Sodium Chloride 0.9% [Normal Saline] 1,000 ml IV ASDIRECTED 10/03/20 12:21 Furosemide [Lasix] 40 mg IVPUSH NOW ONE 10/04/20 05:00 BASIC METABOLIC PANEL,BMP [CHEM] Timed CBC WITH AUTO DIFF [HEME] Timed INR,PT,PROTHROMBIN TIME [COAG] Timed - Plan Plan:: ASSESSMENT AND PLAN - Bilateral pneumonia-complicated by acute respiratory failure with hypoxia. Probable contribution from congestive heart failure as discussed below. 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 Edema has improved with diuresis -Furosemide 40 mg IV today -Continue beta-maddy but reduce dose because of bradycardia Hyponatremia-improved with diuresis -Furosemide as above Chronic atrial fibrillation-status post pacemaker placement. Rate control good at this time. He is chronically anticoagulated. -Beta-maddy as above -Continue warfarin -INR in a.m. Maintenance issues - DVT prophylaxis -warfarin - GI prophylaxis -not indicated - Nutrition -low-sodium - Hernandez catheter -placed in the emergency room for strict intake and output monitoring CODE STATUS -DNR/DNI Admission justification -this patient will be admitted for inpatient services and is medically appropriate meeting medical necessity for inpatient admission as outlined in my documentation. I reasonably expect the patient will require inpatient services that span a period time over 2 midnights. I reasonably expect this patient to be discharged or transferred within 96 hours [facility]. Disposition -I would anticipate discharge to a longterm facility if he survives the hospital stay. Primary care physician -Dr Conrado Smith
[2020-10-03] MEDS: cefTRIAXone 1 GM in Sodium Chloride 0.9% 50 ML IV SCH (12:31)
[2020-10-03] MEDS ORDERED: Furosemide 40 MG/4 ML VIAL IVPUSH ONE (13:00)
[2020-10-03] MEDS: Ampicillin/Sulbactam Na 1.5 GM in Sodium Chloride 0.9% 50 ML IV SCH ×2 (13:44→20:04)
[2020-10-03] MEDS: Warfarin 2.5 MG Tab PO SCH (13:45)
[2020-10-03] MEDS: Melatonin 3 MG Tab PO SCH (21:00)
[2020-10-04] MEDS: Sodium Chloride 0.9% 1,000 ML IV SCH (02:01)
[2020-10-04] MEDS: Ampicillin/Sulbactam Na 1.5 GM in Sodium Chloride 0.9% 50 ML IV SCH ×4 (02:02→20:55)
[2020-10-04] MEDS ORDERED: Furosemide 40 MG/4 ML VIAL IVPUSH ONE (08:30)
[2020-10-04] MEDS: Carvedilol 12.5 MG Tab PO SCH ×2 (09:08→20:32)
[2020-10-04] MEDS: Amiodarone 200 MG Tab PO SCH (09:08)
--- NOTE | 2020-10-04 11:05 | PCM.PN ---
- General Info Date of Service: 10/04/20 Subjective Update: Mr. Angeles has remained more stable from a respiratory standpoint since yesterday. He currently is n.p.o. because of evidence of recurrent episodes of aspiration. Oxygen requirements are less today and he appears to be more comfortable sitting in the chair. He has severe hearing impairment and some confusion, as a result he is unable to provide meaningful information concerning recent symptoms or review of systems. - Patient Data Vitals - Most Recent: Last Vital Signs Temp 96.9 F 10/04/20 07:57 Pulse 51 L 10/04/20 10:00 Resp 27 H 10/04/20 10:00 BP 117/49 L 10/04/20 10:00 Pulse Ox 97 10/04/20 10:00 Weight - Most Recent: 149 lb 14.629 oz I&O - Last 24 Hours: Intake & Output 10/03/20 10/04/20 10/04/20 22:59 06:59 14:59 Intake Total 629 694 50 Output Total 750 475 Balance -121 219 50 Lab Results Last 24 Hours: Laboratory Results - last 24 hr 10/04/20 10/04/20 10/04/20 Range/Units 05:48 05:48 05:48 WBC 10.1 (4.5-11.0) K/uL RBC 3.55 L (4.30-5.90) M/uL Hgb 10.0 L (12.0-15.0) g/dL Hct 31.2 L (40.0-54.0) % MCV 88 (80-98) fL MCH 28 (27-31) pg MCHC 32 (32-36) % Plt Count 216 (150-400) K/uL Neut % (Auto) 89 H (36-66) % Lymph % (Auto) 4 L (24-44) % [place] % (Auto) 7 H (2-6) % Eos % (Auto) 0 L (2-4) % Baso % (Auto) 0 (0-1) % PT 31.4 H (9.5-12.0) sec INR 2.94 H (0.80-1.20) Sodium 130 L (140-148) mmol/L Potassium 3.7 (3.6-5.2) mmol/L Chloride 98 L (100-108) mmol/L Carbon Dioxide 25 (21-32) mmol/L Anion Gap 10.7 (5.0-14.0) mmol/L BUN 27 H (7-18) mg/dL Creatinine 0.9 (0.8-1.3) mg/dL Est Cr Clr Drug Dosing 46.59 mL/min Estimated GFR (MDRD) > 60 (>60) Glucose 120 H (74-106) mg/dL Calcium 8.4 L (8.5-10.1) mg/dL Med Orders - Current: Current Medications Acetaminophen (Tylenol) 650 mg PO Q4H PRN PRN Reason: Pain (Mild 1-3)/fever Acetaminophen/Codeine Phosphate (Tylenol With Codeine No.3 300mg/30mg) 1 tab PO Q6H PRN PRN Reason: Pain (moderate 4-6) Albuterol (Proventil Neb Soln) 2.5 mg NEB Q4H PRN PRN Reason: Shortness Of Breath/wheezing Amiodarone HCl (Cordarone) 200 mg PO DAILY [facility] Last Admin: 10/04/20 09:08 Dose: 200 mg Documented by: Carvedilol (Coreg) 12.5 mg PO BID [facility] Last Admin: 10/04/20 09:08 Dose: 12.5 mg Documented by: Doxycycline Hyclate 100 mg/ (Sodium Chloride) 100 mls @ 100 mls/hr IV Q12H [facility] Last Admin: 10/03/20 22:56 Dose: 100 mls/hr Documented by: Sodium Chloride (Normal Saline) 1,000 mls @ 50 mls/hr IV ASDIRECTED [facility] Last Admin: 10/04/20 02:01 Dose: 50 mls/hr Documented by: Ampicillin Sodium/Sulbactam (Sodium 1.5 gm/ Sodium Chloride) 50 mls @ 100 mls/hr IV Q6H [facility] Last Admin: 10/04/20 07:51 Dose: 100 mls/hr Documented by: Lorazepam (Ativan) 0.5 mg IVPUSH Q4H PRN PRN Reason: Nausea/Vomiting Magnesium Hydroxide (Milk Of Magnesia) 30 ml PO Q12H PRN PRN Reason: Constipation Melatonin (Melatonin) 9 mg PO BEDTIME [facility] Last Admin: 10/03/20 21:00 Dose: 9 mg Documented by: Morphine Sulfate (Morphine) 2 mg IVPUSH Q2H PRN PRN Reason: Pain (severe 7-10) Ondansetron HCl (Zofran) 4 mg IV Q6H PRN PRN Reason: Nausea/Vomiting Ondansetron HCl (Zofran Odt) 4 mg PO Q6H PRN PRN Reason: Nausea able to take PO Senna/Docusate Sodium (Senna Plus) 1 tab PO BID PRN PRN Reason: Constipation Sodium Chloride (Saline Flush) 10 ml FLUSH ASDIRECTED PRN PRN Reason: Keep Vein Open Last Admin: 10/01/20 05:57 Dose: 10 ml Documented by: Warfarin Sodium (Coumadin) 0.625 mg PO DAILY@1300 [facility] Discontinued Medications Furosemide (Lasix) 40 mg IVPUSH NOW ONE Stop: 10/01/20 08:31 Last Admin: 10/01/20 08:40 Dose: 40 mg Documented by: Furosemide (Lasix) 40 mg IVPUSH NOW ONE Stop: 10/02/20 10:38 Last Admin: 10/02/20 17:47 Dose: Not Given Documented by: Furosemide (Lasix) 20 mg IVPUSH NOW ONE Stop: 10/02/20 11:01 Last Admin: 10/02/20 10:56 Dose: 20 mg Documented by: Furosemide (Lasix) 40 mg IVPUSH NOW ONE Stop: 10/03/20 13:01 Last Admin: 10/03/20 13:43 Dose: 40 mg Documented by: Furosemide (Lasix) 40 mg IVPUSH NOW ONE Stop: 10/04/20 08:31 Last Admin: 10/04/20 09:10 Dose: 40 mg Documented by: Sodium Chloride (Normal Saline) 1,000 mls @ 125 mls/hr IV ASDIRECTED [facility] Last Admin: 10/01/20 06:14 Dose: 125 mls/hr Documented by: Ceftriaxone Sodium 1 gm/ (Sodium Chloride) 50 mls @ 100 mls/hr IV Q24H [facility] Last Admin: 10/03/20 12:31 Dose: Not Given Documented by: Sodium Chloride (Normal Saline) 1,000 mls @ 75 mls/hr IV ASDIRECTED [facility] Last Admin: 10/03/20 06:11 Dose: 75 mls/hr Documented by: Lidocaine HCl (Xylocaine 2% Jelly) 10 ml MUCMEM ONETIME ONE Stop: 10/01/20 06:42 Last Admin: 10/01/20 06:51 Dose: 10 ml Documented by: Potassium Chloride (Klor-Con M20) 40 meq PO ONETIME ONE Stop: 10/02/20 11:01 Last Admin: 10/02/20 10:56 Dose: 40 meq Documented by: Potassium Chloride (Klor-Con M20) 40 meq PO ONETIME ONE Stop: 10/02/20 17:01 Last Admin: 10/02/20 16:55 Dose: 40 meq Documented by: Warfarin Sodium (Coumadin) 1.25 mg PO DAILY@1300 [facility] Last Admin: 10/03/20 13:45 Dose: 1.25 mg Documented by: - Exam Quality Assessment: Supplemental Oxygen, DVT Prophylaxis General: Alert, Cooperative, Mild Distress. No: Oriented Lungs: Decreased Breath Sounds, Rales. No: Rhonchi, Wheezing Cardiovascular: Regular Rate, Regular Rhythm, No Murmurs GI/Abdominal Exam: Soft, Non-Tender, No Organomegaly, No Distention Extremities: Non-Tender, No Pedal Edema Sepsis Event Note - Evaluation Sepsis Screening Result: No Definite Risk - Focused Exam Vital Signs: Vital Signs Temp Pulse Pulse Resp BP BP Pulse Ox 10/04/20 10:00 51 L 27 H 117/49 L 97 10/04/20 09:08 53 L 122/51 L 10/04/20 07:57 96.9 F 50 L 20 121/57 L 98 10/04/20 07:56 97 10/04/20 06:00 19 122/54 L 97 10/04/20 04:00 98.2 F 20 131/56 L 98 10/04/20 02:00 19 114/54 L 95 10/04/20 00:00 97.1 F 25 H 112/43 L 96 - Problem List Review Problem List Initiated/Reviewed/Updated: Yes - My Orders Last 24 Hours: My Active Orders 10/03/20 10:04 Air Mattress [Pressure Reduction Mattress] [OM.PC] Routine 10/03/20 Lunch NPO Now [Nothing per Oral Now Diet] [DIET] 10/03/20 12:14 Consult to Speech Language Pathology [DETAIL DRAFTER Evaluation and Treatment] [CONS] Routine 10/03/20 12:15 Sodium Chloride 0.9% [Normal Saline] 1,000 ml IV ASDIRECTED 10/03/20 14:00 Ampicillin/Sulbactam Na [Unasyn] 1.5 gm Sodium Chloride 0.9% [Normal Saline] 50 ml IV Q6H 10/03/20 Dinner NPO [Nothing Per Oral Diet] [DIET] 10/04/20 13:00 Warfarin [Coumadin] 0.625 mg PO DAILY@1300 10/05/20 05:00 BASIC METABOLIC PANEL,BMP [CHEM] Timed INR,PT,PROTHROMBIN TIME [COAG] Timed - Plan Plan:: ASSESSMENT AND PLAN - Bilateral pneumonia-complicated by acute respiratory failure with hypoxia. Probable contribution from congestive heart failure as discussed below. Continues to require use of noninvasive positive pressure ventilation. Aspiratory status is stabilized now that he is n.p.o. 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 Edema has improved with diuresis -Furosemide 40 mg IV today -Continue beta-maddy but reduce dose because of bradycardia Hyponatremia-improved with diuresis -Furosemide as above Chronic atrial fibrillation-status post pacemaker placement. Rate control good at this time. He is chronically anticoagulated. -Beta-maddy as above -Continue warfarin -INR in a.m. Maintenance issues - DVT prophylaxis -warfarin - GI prophylaxis -not indicated - Nutrition -low-sodium - Hernandez catheter -placed in the emergency room for strict intake and output monitoring CODE STATUS -DNR/DNI Admission justification -this patient will be admitted for inpatient services and is medically appropriate meeting medical necessity for inpatient admission as outlined in my documentation. I reasonably expect the patient will require inpatient services that span a period time over 2 midnights. I reasonably expect this patient to be discharged or transferred within 96 hours after admission to the Critical [facility]. Disposition -I would anticipate discharge to a intermediate facility if he survives the hospital stay. Primary care physician -Dr Conrado Smith
[2020-10-04] MEDS: Doxycycline 100 MG in Sodium Chloride 0.9% 100 ML IV SCH ×2 (11:29→23:04)
[2020-10-04] MEDS ORDERED: Warfarin 2.5 MG Tab PO SCH (13:00)
[2020-10-04] MEDS: Melatonin 3 MG Tab PO SCH (20:32)
[2020-10-05] MEDS: Sodium Chloride 0.9% 1,000 ML IV SCH (02:32)
[2020-10-05] MEDS: Ampicillin/Sulbactam Na 1.5 GM in Sodium Chloride 0.9% 50 ML IV SCH ×4 (02:33→20:16)
[2020-10-05] MEDS: Carvedilol 12.5 MG Tab PO SCH ×2 (08:28→20:16)
[2020-10-05] MEDS: Amiodarone 200 MG Tab PO SCH (08:29)
--- NOTE | 2020-10-05 10:04 | CR ---
CHEST: Portable 10/01/2020 at 6:08 AM CLINICAL HISTORY:Hypoxia COMPARISON:CT 2019 FINDINGS: Patient has diffuse bilateral pulmonary infiltrates. Heart is enlarged. Pulmonary vascularity is obscured. Patient has a permanent cardiac pacer/defibrillator. There are atherosclerotic changes in the aorta. IMPRESSION: Moderately dense bilateral pneumonic infiltrates. Cardiomegaly
[2020-10-05] MEDS: Doxycycline 100 MG in Sodium Chloride 0.9% 100 ML IV SCH ×2 (11:32→22:45)
[2020-10-05] MEDS ORDERED: Furosemide 40 MG/4 ML VIAL IVPUSH ONE (12:14)
--- NOTE | 2020-10-05 12:18 | PCM.PN ---
- General Info Date of Service: 10/05/20 Subjective Update: Mr. Angeles has remained fairly stable over the last 24 hours, continues to require use of supplemental oxygen as well as noninvasive positive pressure ventilation. He reports less shortness of breath, remains n.p.o. pending swallowing evaluation. He remains very weak with any attempt at activity. Swallowing study and speech pathology consult are pending today. Functional Status: Reports: Urinating. Denies: Tolerating Diet - Review of Systems General: Reports: Weakness, Fatigue. Denies: Fever, Chills Pulmonary: Reports: Shortness of Breath. Denies: Pleuritic Chest Pain, Cough, Sputum, Hemoptysis, Wheezing Cardiovascular: Reports: Dyspnea on Exertion. Denies: Chest Pain, Palpitations, Orthopnea, PND, Edema, Lightheadedness Gastrointestinal: Reports: No Symptoms - Patient Data Vitals - Most Recent: Last Vital Signs Temp 96.6 F L 10/05/20 08:00 Pulse 50 L 10/05/20 10:00 Resp 23 H 10/05/20 10:00 BP 125/53 L 10/05/20 10:00 Pulse Ox 97 10/05/20 10:00 Weight - Most Recent: 149 lb 14.629 oz I&O - Last 24 Hours: Intake & Output 10/04/20 10/05/20 10/05/20 22:59 06:59 14:59 Intake Total 508 679 150 Output Total 825 300 Balance -317 379 150 Lab Results Last 24 Hours: Laboratory Results - last 24 hr 10/05/20 10/05/20 Range/Units 04:15 04:15 PT 38.0 H (9.5-12.0) sec INR 3.57 H (0.80-1.20) Sodium 135 L (140-148) mmol/L Potassium 3.6 (3.6-5.2) mmol/L Chloride 101 (100-108) mmol/L Carbon Dioxide 26 (21-32) mmol/L Anion Gap 11.6 (5.0-14.0) mmol/L BUN 25 H (7-18) mg/dL Creatinine 0.9 (0.8-1.3) mg/dL Est Cr Clr Drug Dosing 46.59 mL/min Estimated GFR (MDRD) > 60 (>60) Glucose 117 H (74-106) mg/dL Calcium 8.6 (8.5-10.1) mg/dL Med Orders - Current: Current Medications Acetaminophen (Tylenol) 650 mg PO Q4H PRN PRN Reason: Pain (Mild 1-3)/fever Acetaminophen/Codeine Phosphate (Tylenol With Codeine No.3 300mg/30mg) 1 tab PO Q6H PRN PRN Reason: Pain (moderate 4-6) Albuterol (Proventil Neb Soln) 2.5 mg NEB Q4H PRN PRN Reason: Shortness Of Breath/wheezing Amiodarone HCl (Cordarone) 200 mg PO DAILY [facility] Last Admin: 10/05/20 08:29 Dose: 200 mg Documented by: Carvedilol (Coreg) 12.5 mg PO BID [facility] Last Admin: 10/05/20 08:28 Dose: 12.5 mg Documented by: Furosemide (Lasix) 40 mg IVPUSH NOW ONE Stop: 10/05/20 12:15 Doxycycline Hyclate 100 mg/ (Sodium Chloride) 100 mls @ 100 mls/hr IV Q12H [facility] Last Admin: 10/05/20 11:32 Dose: 100 mls/hr Documented by: Sodium Chloride (Normal Saline) 1,000 mls @ 50 mls/hr IV ASDIRECTED [facility] Last Admin: 10/05/20 02:32 Dose: 50 mls/hr Documented by: Ampicillin Sodium/Sulbactam (Sodium 1.5 gm/ Sodium Chloride) 50 mls @ 100 mls/hr IV Q6H [facility] Last Admin: 10/05/20 08:15 Dose: 100 mls/hr Documented by: Lorazepam (Ativan) 0.5 mg IVPUSH Q4H PRN PRN Reason: Nausea/Vomiting Magnesium Hydroxide (Milk Of Magnesia) 30 ml PO Q12H PRN PRN Reason: Constipation Melatonin (Melatonin) 9 mg PO BEDTIME [facility] Last Admin: 10/04/20 20:32 Dose: 9 mg Documented by: Morphine Sulfate (Morphine) 2 mg IVPUSH Q2H PRN PRN Reason: Pain (severe 7-10) Ondansetron HCl (Zofran) 4 mg IV Q6H PRN PRN Reason: Nausea/Vomiting Ondansetron HCl (Zofran Odt) 4 mg PO Q6H PRN PRN Reason: Nausea able to take PO Senna/Docusate Sodium (Senna Plus) 1 tab PO BID PRN PRN Reason: Constipation Sodium Chloride (Saline Flush) 10 ml FLUSH ASDIRECTED PRN PRN Reason: Keep Vein Open Last Admin: 10/01/20 05:57 Dose: 10 ml Documented by: Discontinued Medications Furosemide (Lasix) 40 mg IVPUSH NOW ONE Stop: 10/01/20 08:31 Last Admin: 10/01/20 08:40 Dose: 40 mg Documented by: Furosemide (Lasix) 40 mg IVPUSH NOW ONE Stop: 10/02/20 10:38 Last Admin: 10/02/20 17:47 Dose: Not Given Documented by: Furosemide (Lasix) 20 mg IVPUSH NOW ONE Stop: 10/02/20 11:01 Last Admin: 10/02/20 10:56 Dose: 20 mg Documented by: Furosemide (Lasix) 40 mg IVPUSH NOW ONE Stop: 10/03/20 13:01 Last Admin: 10/03/20 13:43 Dose: 40 mg Documented by: Furosemide (Lasix) 40 mg IVPUSH NOW ONE Stop: 10/04/20 08:31 Last Admin: 10/04/20 09:10 Dose: 40 mg Documented by: Sodium Chloride (Normal Saline) 1,000 mls @ 125 mls/hr IV ASDIRECTED [facility] Last Admin: 10/01/20 06:14 Dose: 125 mls/hr Documented by: Ceftriaxone Sodium 1 gm/ (Sodium Chloride) 50 mls @ 100 mls/hr IV Q24H [facility] Last Admin: 10/03/20 12:31 Dose: Not Given Documented by: Sodium Chloride (Normal Saline) 1,000 mls @ 75 mls/hr IV ASDIRECTED [facility] Last Admin: 10/03/20 06:11 Dose: 75 mls/hr Documented by: Lidocaine HCl (Xylocaine 2% Jelly) 10 ml MUCMEM ONETIME ONE Stop: 10/01/20 06:42 Last Admin: 10/01/20 06:51 Dose: 10 ml Documented by: Potassium Chloride (Klor-Con M20) 40 meq PO ONETIME ONE Stop: 10/02/20 11:01 Last Admin: 10/02/20 10:56 Dose: 40 meq Documented by: Potassium Chloride (Klor-Con M20) 40 meq PO ONETIME ONE Stop: 10/02/20 17:01 Last Admin: 10/02/20 16:55 Dose: 40 meq Documented by: Warfarin Sodium (Coumadin) 1.25 mg PO DAILY@1300 [facility] Last Admin: 10/03/20 13:45 Dose: 1.25 mg Documented by: Warfarin Sodium (Coumadin) 0.625 mg PO DAILY@1300 [facility] Last Admin: 10/04/20 13:29 Dose: 0.625 mg Documented by: - Exam Quality Assessment: DVT Prophylaxis General: Alert, Cooperative, Mild Distress Lungs: Normal Respiratory Effort, Decreased Breath Sounds. No: Crackles, Rales, Rhonchi, Wheezing Cardiovascular: Regular Rate, Regular Rhythm, No Murmurs GI/Abdominal Exam: Soft, Non-Tender, No Organomegaly, No Distention Extremities: Non-Tender, No Pedal Edema Sepsis Event Note - Evaluation Sepsis Screening Result: No Definite Risk - Focused Exam Vital Signs: Vital Signs Temp Pulse Pulse Resp BP BP Pulse Ox 10/05/20 10:00 50 L 23 H 125/53 L 97 10/05/20 08:28 60 131/49 L 10/05/20 08:00 96.6 F L 65 25 H 131/49 L 90 L 10/05/20 06:00 17 118/48 L 96 10/05/20 04:00 97.1 F 20 137/54 L 96 10/05/20 02:00 18 139/62 97 10/05/20 01:15 96 - Problem List Review Problem List Initiated/Reviewed/Updated: Yes - My Orders Last 24 Hours: My Active Orders 10/05/20 10:18 Swallowing Function w Video [CR] Urgent 10/05/20 12:14 Furosemide [Lasix] 40 mg IVPUSH NOW ONE 10/06/20 05:00 BASIC METABOLIC PANEL,BMP [CHEM] Timed - Plan Plan:: ASSESSMENT AND PLAN - Bilateral pneumonia-complicated by acute respiratory failure with hypoxia. Probable contribution from congestive heart failure as discussed below. Continues to require use of noninvasive positive pressure ventilation. Respira tory status is stabilized now that he is n.p.o. ending swallowing evaluation -Swallowing evaluation today -Antibiotic coverage with doxycycline and Unasyn -Supplement oxygen, NIPPV as needed -Blood culture pending Systolic congestive heart failure-suspect acute on chronic with pneumonia leading to deterioration. Edema has improved with diuresis -Furosemide 40 mg IV today -Continue beta-maddy but reduce dose because of bradycardia Hyponatremia-improved with diuresis -Furosemide as above Chronic atrial fibrillation-status post pacemaker placement. Rate control good at this time. He is chronically anticoagulated. INR is supratherapeutic today -Beta-maddy as above -Hold warfarin today -INR in a.m. Maintenance issues - DVT prophylaxis -warfarin - GI prophylaxis -not indicated - Nutrition -low-sodium - Hernandez catheter -placed in the emergency room for strict intake and output monitoring CODE STATUS -DNR/DNI Admission justification -this patient will be admitted for inpatient services and is medically appropriate meeting medical necessity for inpatient admission as outlined in my documentation. I reasonably expect the patient will require inpatient services that span a period time over 2 midnights. I reasonably expect this patient to be discharged or transferred within 96 hours after admission to the Critical [facility]. Disposition -I would anticipate discharge to a long term facility if he survives the hospital stay. Primary care physician -Dr Conrado Smith
[2020-10-05] MEDS ORDERED: Barium Sulfate 60% w/w Esophageal Crm 454 GM Tube PO PRN (15:17)
[2020-10-05] MEDS ORDERED: Barium Sulfate 98% Powder for Susp 340 GM Bottle PO PRN (15:17)
--- NOTE | 2020-10-05 15:21 | CR ---
Swallowing Function w Video INDICATION: Choking while eating Fluoro images obtained 1 TECHNIQUE: Video swallowing study performed in conjunction with the Speech Pathology Staff. Patient was given barium in varying consistencies. Swallowing was observed fluoroscopically. FINDINGS: Patient had difficulty initiating a swallow with thin liquids. There was some early spillage that filled the vallecula. There is no penetration the airway or aspiration. Patient swallowed thickened liquids and pudding textures with minimal difficulty. See Speech Pathology Staff note for additional details.
[2020-10-05] MEDS: Melatonin 3 MG Tab PO SCH (20:16)
[2020-10-05] MEDS: Clotrimazole 10 MG Troche PO SCH (22:02)
[2020-10-06] MEDS: Ampicillin/Sulbactam Na 1.5 GM in Sodium Chloride 0.9% 50 ML IV SCH ×3 (02:44→14:18)
[2020-10-06] MEDS: Clotrimazole 10 MG Troche PO SCH ×5 (05:59→21:35)
[2020-10-06] MEDS: Amiodarone 200 MG Tab PO SCH (08:49)
[2020-10-06] MEDS: Carvedilol 12.5 MG Tab PO SCH ×2 (08:49→21:35)
--- NOTE | 2020-10-06 10:13 | PCM.PN ---
- General Info Date of Service: 10/06/20 Subjective Update: There were no acute events overnight. Patient reports that he feels fairly well. No complaints of chest pain or abdominal pain. No nausea. Strength is slowly improving. Shortness of breath is slowly improving. He does continue to require supplemental oxygen but only a small quantity. Tolerating his pured diet and thickened liquids. Still quite weak and requires the assist of 2. Functional Status: Reports: Pain Controlled, Tolerating Diet - Review of Systems General: Reports: Weakness. Denies: Fever Cardiovascular: Reports: Edema - Patient Data Vitals - Most Recent: Last Vital Signs Temp 36.4 C 10/06/20 04:00 Pulse 55 L 10/06/20 08:49 Resp 16 10/06/20 08:00 BP 149/70 H 10/06/20 08:49 Pulse Ox 95 10/06/20 08:00 Weight - Most Recent: 68 kg I&O - Last 24 Hours: Intake & Output 10/05/20 10/06/20 10/06/20 22:59 06:59 14:59 Intake Total 998 713 270 Output Total 1150 400 Balance -152 313 270 Lab Results Last 24 Hours: Laboratory Results - last 24 hr 10/06/20 10/06/20 Range/Units 04:10 04:10 PT 41.3 H (9.5-12.0) sec INR 3.89 H (0.80-1.20) Sodium 141 (140-148) mmol/L Potassium 3.4 L (3.6-5.2) mmol/L Chloride 106 (100-108) mmol/L Carbon Dioxide 29 (21-32) mmol/L Anion Gap 9.4 (5.0-14.0) mmol/L BUN 26 H (7-18) mg/dL Creatinine 0.9 (0.8-1.3) mg/dL Est Cr Clr Drug Dosing 46.91 mL/min Estimated GFR (MDRD) > 60 (>60) Glucose 115 H (74-106) mg/dL Calcium 8.8 (8.5-10.1) mg/dL Med Orders - Current: Current Medications Acetaminophen (Tylenol) 650 mg PO Q4H PRN PRN Reason: Pain (Mild 1-3)/fever Acetaminophen/Codeine Phosphate (Tylenol With Codeine No.3 300mg/30mg) 1 tab PO Q6H PRN PRN Reason: Pain (moderate 4-6) Albuterol (Proventil Neb Soln) 2.5 mg NEB Q4H PRN PRN Reason: Shortness Of Breath/wheezing Amiodarone HCl (Cordarone) 200 mg PO DAILY [facility] Last Admin: 10/06/20 08:49 Dose: 200 mg Documented by: Barium Sulfate (E-Z-Hd) 50 gm PO . DIRECTED PRN PRN Reason: RADIOLOGY EXAM Stop: 10/06/20 15:18 Last Admin: 10/05/20 15:24 Dose: 50 gm Documented by: Barium Sulfate (E-Z-Paste) 25 gm PO . DIRECTED PRN PRN Reason: RADIOLOGY EXAM Stop: 10/06/20 15:18 Last Admin: 10/05/20 15:21 Dose: 25 gm Documented by: Carvedilol (Coreg) 12.5 mg PO BID [facility] Last Admin: 10/06/20 08:49 Dose: 12.5 mg Documented by: Clotrimazole (Mycelex) 10 mg PO 5XDAY [facility] Last Admin: 10/06/20 05:59 Dose: 10 mg Documented by: Doxycycline Hyclate 100 mg/ (Sodium Chloride) 100 mls @ 100 mls/hr IV Q12H [facility] Last Admin: 10/05/20 22:45 Dose: 100 mls/hr Documented by: Ampicillin Sodium/Sulbactam (Sodium 1.5 gm/ Sodium Chloride) 50 mls @ 100 mls/hr IV Q6H [facility] Stop: 10/06/20 16:00 Last Admin: 10/06/20 08:48 Dose: 100 mls/hr Documented by: Lorazepam (Ativan) 0.5 mg IVPUSH Q4H PRN PRN Reason: Nausea/Vomiting Magnesium Hydroxide (Milk Of Magnesia) 30 ml PO Q12H PRN PRN Reason: Constipation Melatonin (Melatonin) 9 mg PO BEDTIME [facility] Last Admin: 10/05/20 20:16 Dose: 9 mg Documented by: Morphine Sulfate (Morphine) 2 mg IVPUSH Q2H PRN PRN Reason: Pain (severe 7-10) Ondansetron HCl (Zofran) 4 mg IV Q6H PRN PRN Reason: Nausea/Vomiting Ondansetron HCl (Zofran Odt) 4 mg PO Q6H PRN PRN Reason: Nausea able to take PO Senna/Docusate Sodium (Senna Plus) 1 tab PO BID PRN PRN Reason: Constipation Sodium Chloride (Saline Flush) 10 ml FLUSH ASDIRECTED PRN PRN Reason: Keep Vein Open Last Admin: 10/01/20 05:57 Dose: 10 ml Documented by: Discontinued Medications Furosemide (Lasix) 40 mg IVPUSH NOW ONE Stop: 10/01/20 08:31 Last Admin: 10/01/20 08:40 Dose: 40 mg Documented by: Furosemide (Lasix) 40 mg IVPUSH NOW ONE Stop: 10/02/20 10:38 Last Admin: 10/02/20 17:47 Dose: Not Given Documented by: Furosemide (Lasix) 20 mg IVPUSH NOW ONE Stop: 10/02/20 11:01 Last Admin: 10/02/20 10:56 Dose: 20 mg Documented by: Furosemide (Lasix) 40 mg IVPUSH NOW ONE Stop: 10/03/20 13:01 Last Admin: 10/03/20 13:43 Dose: 40 mg Documented by: Furosemide (Lasix) 40 mg IVPUSH NOW ONE Stop: 10/04/20 08:31 Last Admin: 10/04/20 09:10 Dose: 40 mg Documented by: Furosemide (Lasix) 40 mg IVPUSH NOW ONE Stop: 10/05/20 12:15 Last Admin: 10/05/20 12:47 Dose: 40 mg Documented by: Sodium Chloride (Normal Saline) 1,000 mls @ 125 mls/hr IV ASDIRECTED [facility] Last Admin: 10/01/20 06:14 Dose: 125 mls/hr Documented by: Ceftriaxone Sodium 1 gm/ (Sodium Chloride) 50 mls @ 100 mls/hr IV Q24H [facility] Last Admin: 10/03/20 12:31 Dose: Not Given Documented by: Sodium Chloride (Normal Saline) 1,000 mls @ 75 mls/hr IV ASDIRECTED [facility] Last Admin: 10/03/20 06:11 Dose: 75 mls/hr Documented by: Sodium Chloride (Normal Saline) 1,000 mls @ 50 mls/hr IV ASDIRECTED [facility] Last Admin: 10/05/20 02:32 Dose: 50 mls/hr Documented by: Lidocaine HCl (Xylocaine 2% Jelly) 10 ml MUCMEM ONETIME ONE Stop: 10/01/20 06:42 Last Admin: 10/01/20 06:51 Dose: 10 ml Documented by: Potassium Chloride (Klor-Con M20) 40 meq PO ONETIME ONE Stop: 10/02/20 11:01 Last Admin: 10/02/20 10:56 Dose: 40 meq Documented by: Potassium Chloride (Klor-Con M20) 40 meq PO ONETIME ONE Stop: 10/02/20 17:01 Last Admin: 10/02/20 16:55 Dose: 40 meq Documented by: Warfarin Sodium (Coumadin) 1.25 mg PO DAILY@1300 [facility] Last Admin: 10/03/20 13:45 Dose: 1.25 mg Documented by: Warfarin Sodium (Coumadin) 0.625 mg PO DAILY@1300 [facility] Last Admin: 10/04/20 13:29 Dose: 0.625 mg Documented by: - Exam Quality Assessment: Supplemental Oxygen General: Alert, Cooperative, No Acute Distress Lungs: Normal Respiratory Effort, Decreased Breath Sounds (mild both bases) Cardiovascular: Regular Rate, Irregular Rhythm GI/Abdominal Exam: Soft, No Distention Extremities: Pedal Edema. No: Increased Warmth Skin: Warm, Dry Psy/Mental Status: Alert, Normal Affect Sepsis Event Note - Evaluation Sepsis Screening Result: No Definite Risk - Focused Exam Vital Signs: Vital Signs Temp Pulse Pulse Resp BP BP Pulse Ox 10/06/20 08:49 55 L 149/70 H 10/06/20 08:00 55 L 16 149/70 H 95 10/06/20 06:00 15 135/54 L 98 10/06/20 04:00 36.4 C 16 131/58 L 96 10/06/20 02:00 19 115/44 L 99 10/06/20 01:00 99 10/06/20 00:00 36.2 C 18 115/46 L 96 - Problem List & Annotations (1) Bilateral pneumonia SNOMED Code(s): 473668719 Code(s): J18.9 - PNEUMONIA, UNSPECIFIED ORGANISM Status: Acute Current Visit: Yes Qualifiers: Pneumonia type: due to unspecified organism Lung location: lower lobe of lung Qualified Code(s): J18.9 - Pneumonia, unspecified organism (2) Congestive heart failure SNOMED Code(s): 16974563 Code(s): I50.9 - HEART FAILURE, UNSPECIFIED Status: Acute Priority: High Current Visit: No Qualifiers: Heart failure type: unspecified Heart failure chronicity: acute on chronic Qualified Code(s): I50.9 - Heart failure, unspecified (3) Acute respiratory failure with hypoxia SNOMED Code(s): 11017274, 699232238 Code(s): J96.01 - ACUTE RESPIRATORY FAILURE WITH HYPOXIA Status: Acute Current Visit: Yes (4) Hyponatremia SNOMED Code(s): 78958140 Code(s): E87.1 - HYPO-OSMOLALITY AND HYPONATREMIA Status: Acute Current Visit: Yes (5) Atrial fibrillation SNOMED Code(s): 94602655 Code(s): I48.91 - UNSPECIFIED ATRIAL FIBRILLATION Status: Chronic Current Visit: No Qualifiers: Atrial fibrillation type: permanent Qualified Code(s): I48.21 - Permanent atrial fibrillation - Problem List Review Problem List Initiated/Reviewed/Updated: Yes - My Orders Last 24 Hours: My Active Orders 10/06/20 10:06 Potassium Chloride [Klor-Con M20] 40 meq PO ONETIME ONE 10/06/20 10:09 Up With Assistance [RC] ASDIRECTED Convert IV to Saline Lock [OM.PC] Routine 10/06/20 10:10 Discontinue Telemetry Monitoring [Cardiac Monitoring Discontinue] [RC] Click to Edit 10/06/20 10:11 Transfer Patient (Change bed) [ADT] Routine 10/06/20 10:12 PT Evaluation and Treatment [CONS] Routine 10/06/20 21:00 Amoxicillin/Clavulanate K [Augmentin 875 MG/125 MG] 1 tab PO BID Doxycycline [Vibramycin] 100 mg PO BID 10/07/20 05:00 BASIC METABOLIC PANEL,BMP [CHEM] Timed INR,PT,PROTHROMBIN TIME [COAG] Timed 10/07/20 06:45 Hernandez Catheter Insertion [Insert Urinary Catheter] [OM.PC] Q24H - Plan Plan:: ASSESSMENT AND PLAN - Bilateral pneumonia-complicated by acute respiratory failure with hypoxia. Slowly improving. Still requiring some oxygen. Quite weak. -Antibiotic coverage with doxycycline and Augmentin -Supplement oxygen as needed, wean as able -Physical therapy for strengthening Dysphagia-some difficulty noted on the speech pathology evaluation yesterday. Tolerating. Diet and thickened liquids. Systolic congestive heart failure-suspect acute on chronic with pneumonia leading to deterioration. Edema has improved with diuresis -Furosemide 40 mg IV today -Continue beta-maddy but reduce dose because of bradycardia Hyponatremia-improved with diuresis -Furosemide as above Chronic atrial fibrillation-status post pacemaker placement. Rate control good at this time. He is chronically anticoagulated. INR is supratherapeutic today -Beta-maddy as above -Hold warfarin today -INR in a.m. Maintenance issues - DVT prophylaxis -warfarin - GI prophylaxis -not indicated - Nutrition -low-sodium - Hernandez catheter -placed in the emergency room for strict intake and output monitoring, hope to remove tomorrow if stable overnight Disposition -I would anticipate discharge to a half-way facility after the hospital stay Wagner Rhodes MD
[2020-10-06] MEDS ORDERED: Potassium Chloride 20 MEQ Tab.ER PO ONE (10:30)
[2020-10-06] MEDS ORDERED: Furosemide 40 MG/4 ML VIAL IVPUSH ONE (10:30)
[2020-10-06] MEDS: Doxycycline 100 MG in Sodium Chloride 0.9% 100 ML IV SCH (11:39)
[2020-10-06] MEDS: Doxycycline 100 MG Cap PO SCH ×2 (11:39→21:35)
[2020-10-06] MEDS: Melatonin 3 MG Tab PO SCH (21:35)
[2020-10-06] MEDS: Amoxicillin/Clavulanate K 875-125 MG Tab PO SCH (21:37)
[2020-10-06] MEDS: Lactobacillus Rhamnosus GG (Probiotic) Cap PO SCH (21:37)
[2020-10-07] MEDS: Clotrimazole 10 MG Troche PO SCH ×6 (05:16→22:28)
[2020-10-07] MEDS: Carvedilol 12.5 MG Tab PO SCH ×2 (08:30→21:05)
[2020-10-07] MEDS: Doxycycline 100 MG Cap PO SCH ×2 (08:30→21:06)
[2020-10-07] MEDS: Amiodarone 200 MG Tab PO SCH (08:30)
[2020-10-07] MEDS: Amoxicillin/Clavulanate K 875-125 MG Tab PO SCH ×2 (08:30→21:05)
[2020-10-07] MEDS: Lactobacillus Rhamnosus GG (Probiotic) Cap PO SCH ×2 (08:30→21:06)
[2020-10-07] MEDS: Potassium Chloride 20 MEQ Tab.ER PO SCH ×2 (08:44→21:06)
--- NOTE | 2020-10-07 10:21 | PCM.PN ---
- General Info Date of Service: 10/07/20 Subjective Update: No acute events overnight. Patient is weak but otherwise doing okay. Appetite is not great but a little better. Still requiring 2 L of supplemental oxygen. No fevers. Lower extremity edema is stable. He remains quite weak and requires assist of 2 versus Radha steady lift. Functional Status: Reports: Pain Controlled, Tolerating Diet - Review of Systems General: Reports: Weakness - Patient Data Vitals - Most Recent: Last Vital Signs Temp 35.5 C L 10/07/20 08:26 Pulse 51 L 10/07/20 08:30 Resp 20 10/07/20 08:26 BP 157/53 H 10/07/20 08:30 Pulse Ox 98 10/07/20 08:26 Weight - Most Recent: 68 kg I&O - Last 24 Hours: Intake & Output 10/06/20 10/07/20 10/07/20 22:59 06:59 14:59 Intake Total 764 Output Total 750 400 Balance 14 -400 Lab Results Last 24 Hours: Laboratory Results - last 24 hr 10/07/20 10/07/20 Range/Units 06:31 06:31 PT 33.5 H (9.5-12.0) sec INR 3.14 H (0.80-1.20) Sodium 147 (140-148) mmol/L Potassium 3.1 L (3.6-5.2) mmol/L Chloride 109 H (100-108) mmol/L Carbon Dioxide 29 (21-32) mmol/L Anion Gap 12.1 (5.0-14.0) mmol/L BUN 23 H (7-18) mg/dL Creatinine 0.7 L (0.8-1.3) mg/dL Est Cr Clr Drug Dosing 60.31 mL/min Estimated GFR (MDRD) > 60 (>60) Glucose 118 H (74-106) mg/dL Calcium 8.6 (8.5-10.1) mg/dL Med Orders - Current: Current Medications Acetaminophen (Tylenol) 650 mg PO Q4H PRN PRN Reason: Pain (Mild 1-3)/fever Last Admin: 10/06/20 21:37 Dose: 650 mg Documented by: Acetaminophen/Codeine Phosphate (Tylenol With Codeine No.3 300mg/30mg) 1 tab PO Q6H PRN PRN Reason: Pain (moderate 4-6) Albuterol (Proventil Neb Soln) 2.5 mg NEB Q4H PRN PRN Reason: Shortness Of Breath/wheezing Amiodarone HCl (Cordarone) 200 mg PO DAILY [facility] Last Admin: 10/07/20 08:30 Dose: 200 mg Documented by: Amoxicillin/Clavulanate Potassium (Augmentin 875 Mg/125 Mg) 1 tab PO BID [facility] Last Admin: 10/07/20 08:30 Dose: 1 tab Documented by: Carvedilol (Coreg) 12.5 mg PO BID [facility] Last Admin: 10/07/20 08:30 Dose: 12.5 mg Documented by: Clotrimazole (Mycelex) 10 mg PO 5XDAY [facility] Last Admin: 10/07/20 05:16 Dose: 10 mg Documented by: Doxycycline Hyclate (Vibramycin) 100 mg PO BID [facility] Last Admin: 10/07/20 08:30 Dose: 100 mg Documented by: Lactobacillus Rhamnosus (Culturelle) 1 cap PO BID [facility] Last Admin: 10/07/20 08:30 Dose: 1 cap Documented by: Lorazepam (Ativan) 0.5 mg IVPUSH Q4H PRN PRN Reason: Nausea/Vomiting Magnesium Hydroxide (Milk Of Magnesia) 30 ml PO Q12H PRN PRN Reason: Constipation Melatonin (Melatonin) 9 mg PO BEDTIME [facility] Last Admin: 10/06/20 21:35 Dose: 9 mg Documented by: Morphine Sulfate (Morphine) 2 mg IVPUSH Q2H PRN PRN Reason: Pain (severe 7-10) Ondansetron HCl (Zofran) 4 mg IV Q6H PRN PRN Reason: Nausea/Vomiting Ondansetron HCl (Zofran Odt) 4 mg PO Q6H PRN PRN Reason: Nausea able to take PO Potassium Chloride (Klor-Con M20) 40 meq PO BID [facility] Last Admin: 10/07/20 08:44 Dose: 40 meq Documented by: Senna/Docusate Sodium (Senna Plus) 1 tab PO BID PRN PRN Reason: Constipation Sodium Chloride (Saline Flush) 10 ml FLUSH ASDIRECTED PRN PRN Reason: Keep Vein Open Last Admin: 10/01/20 05:57 Dose: 10 ml Documented by: Discontinued Medications Barium Sulfate (E-Z-Hd) 50 gm PO . DIRECTED PRN PRN Reason: RADIOLOGY EXAM Stop: 10/06/20 15:18 Last Admin: 10/05/20 15:24 Dose: 50 gm Documented by: Barium Sulfate (E-Z-Paste) 25 gm PO . DIRECTED PRN PRN Reason: RADIOLOGY EXAM Stop: 10/06/20 15:18 Last Admin: 10/05/20 15:21 Dose: 25 gm Documented by: Furosemide (Lasix) 40 mg IVPUSH NOW ONE Stop: 10/01/20 08:31 Last Admin: 10/01/20 08:40 Dose: 40 mg Documented by: Furosemide (Lasix) 40 mg IVPUSH NOW ONE Stop: 10/02/20 10:38 Last Admin: 10/02/20 17:47 Dose: Not Given Documented by: Furosemide (Lasix) 20 mg IVPUSH NOW ONE Stop: 10/02/20 11:01 Last Admin: 10/02/20 10:56 Dose: 20 mg Documented by: Furosemide (Lasix) 40 mg IVPUSH NOW ONE Stop: 10/03/20 13:01 Last Admin: 10/03/20 13:43 Dose: 40 mg Documented by: Furosemide (Lasix) 40 mg IVPUSH NOW ONE Stop: 10/04/20 08:31 Last Admin: 10/04/20 09:10 Dose: 40 mg Documented by: Furosemide (Lasix) 40 mg IVPUSH NOW ONE Stop: 10/05/20 12:15 Last Admin: 10/05/20 12:47 Dose: 40 mg Documented by: Furosemide (Lasix) 40 mg IVPUSH ONETIME ONE Stop: 10/06/20 10:31 Last Admin: 10/06/20 10:57 Dose: 40 mg Documented by: Sodium Chloride (Normal Saline) 1,000 mls @ 125 mls/hr IV ASDIRECTED [facility] Last Admin: 10/01/20 06:14 Dose: 125 mls/hr Documented by: Ceftriaxone Sodium 1 gm/ (Sodium Chloride) 50 mls @ 100 mls/hr IV Q24H [facility] Last Admin: 10/03/20 12:31 Dose: Not Given Documented by: Doxycycline Hyclate 100 mg/ (Sodium Chloride) 100 mls @ 100 mls/hr IV Q12H [facility] Last Admin: 10/06/20 11:39 Dose: Not Given Documented by: Sodium Chloride (Normal Saline) 1,000 mls @ 75 mls/hr IV ASDIRECTED [facility] Last Admin: 10/03/20 06:11 Dose: 75 mls/hr Documented by: Sodium Chloride (Normal Saline) 1,000 mls @ 50 mls/hr IV ASDIRECTED [facility] Last Admin: 10/05/20 02:32 Dose: 50 mls/hr Documented by: Ampicillin Sodium/Sulbactam (Sodium 1.5 gm/ Sodium Chloride) 50 mls @ 100 mls/hr IV Q6H [facility] Stop: 10/06/20 16:00 Last Admin: 10/06/20 14:18 Dose: 100 mls/hr Documented by: Lidocaine HCl (Xylocaine 2% Jelly) 10 ml MUCMEM ONETIME ONE Stop: 10/01/20 06:42 Last Admin: 10/01/20 06:51 Dose: 10 ml Documented by: Potassium Chloride (Klor-Con M20) 40 meq PO ONETIME ONE Stop: 10/02/20 11:01 Last Admin: 10/02/20 10:56 Dose: 40 meq Documented by: Potassium Chloride (Klor-Con M20) 40 meq PO ONETIME ONE Stop: 10/02/20 17:01 Last Admin: 10/02/20 16:55 Dose: 40 meq Documented by: Potassium Chloride (Klor-Con M20) 40 meq PO ONETIME ONE Stop: 10/06/20 10:31 Last Admin: 10/06/20 10:57 Dose: 40 meq Documented by: Warfarin Sodium (Coumadin) 1.25 mg PO DAILY@1300 [facility] Last Admin: 10/03/20 13:45 Dose: 1.25 mg Documented by: Warfarin Sodium (Coumadin) 0.625 mg PO DAILY@1300 [facility] Last Admin: 10/04/20 13:29 Dose: 0.625 mg Documented by: - Exam Quality Assessment: Supplemental Oxygen General: Alert, Cooperative, No Acute Distress Lungs: Normal Respiratory Effort, Decreased Breath Sounds (mild left lung base), Crackles (rare both bases) Cardiovascular: Regular Rate, Regular Rhythm GI/Abdominal Exam: Soft, No Distention Extremities: Pedal Edema. No: Increased Warmth Skin: Warm, Dry Psy/Mental Status: Alert, Normal Affect Sepsis Event Note - Evaluation Sepsis Screening Result: No Definite Risk - Focused Exam Vital Signs: Vital Signs Temp Pulse Pulse Resp BP BP Pulse Ox 10/07/20 08:30 51 L 157/53 H 10/07/20 08:26 35.5 C L 51 L 20 157/53 H 98 10/07/20 03:00 35.5 C L 50 L 16 131/48 L 97 10/06/20 23:00 36.6 C 50 L 16 120/48 L 96 - Problem List & Annotations (1) Bilateral pneumonia SNOMED Code(s): 594839764 Code(s): J18.9 - PNEUMONIA, UNSPECIFIED ORGANISM Status: Acute Current Visit: Yes Qualifiers: Pneumonia type: due to unspecified organism Lung location: lower lobe of lung Qualified Code(s): J18.9 - Pneumonia, unspecified organism (2) Congestive heart failure SNOMED Code(s): 65002801 Code(s): I50.9 - HEART FAILURE, UNSPECIFIED Status: Acute Priority: High Current Visit: No Qualifiers: Heart failure type: unspecified Heart failure chronicity: acute on chronic Qualified Code(s): I50.9 - Heart failure, unspecified (3) Acute respiratory failure with hypoxia SNOMED Code(s): 37285004, 182196655 Code(s): J96.01 - ACUTE RESPIRATORY FAILURE WITH HYPOXIA Status: Acute Current Visit: Yes (4) Hyponatremia SNOMED Code(s): 03236593 Code(s): E87.1 - HYPO-OSMOLALITY AND HYPONATREMIA Status: Acute Current Visit: Yes (5) Atrial fibrillation SNOMED Code(s): 27643047 Code(s): I48.91 - UNSPECIFIED ATRIAL FIBRILLATION Status: Chronic Current Visit: No Qualifiers: Atrial fibrillation type: permanent Qualified Code(s): I48.21 - Permanent atrial fibrillation - Problem List Review Problem List Initiated/Reviewed/Updated: Yes - My Orders Last 24 Hours: My Active Orders 10/06/20 10:09 Up With Assistance [RC] ASDIRECTED Convert IV to Saline Lock [OM.PC] Routine 10/06/20 10:11 Transfer Patient (Change bed) [ADT] Routine 10/06/20 10:12 PT Evaluation and Treatment [CONS] Routine 10/06/20 11:00 Doxycycline [Vibramycin] 100 mg PO BID 10/06/20 21:00 Amoxicillin/Clavulanate K [Augmentin 875 MG/125 MG] 1 tab PO BID Lactobacillus Rhamnosus GG [Culturelle] 1 cap PO BID 10/07/20 09:00 Potassium Chloride [Klor-Con M20] 40 meq PO BID 10/07/20 10:20 DC Hernandez Catheter [Urinary Catheter Removal] [RC] PER UNIT ROUTINE 10/08/20 05:00 BASIC METABOLIC PANEL,BMP [CHEM] Timed INR,PT,PROTHROMBIN TIME [COAG] Timed - Plan Plan:: ASSESSMENT AND PLAN - Bilateral pneumonia-complicated by acute respiratory failure with hypoxia. Slowly improving but still quite weak. Supplemental oxygen requirement is down to 2 L. -Antibiotic coverage with doxycycline and Augmentin -Supplement oxygen as needed, wean as able -Physical therapy for strengthening Dysphagia-some difficulty noted on the speech pathology evaluation. Tolerating pureed diet and thickened liquids. Systolic congestive heart failure-suspect acute on chronic with pneumonia leading to deterioration. Edema has improved with diuresis. -Furosemide 40 mg IV today then start 40 mg by mouth daily tomorrow -Continue beta-maddy but reduce dose because of bradycardia Hyponatremia-improved with diuresis. -Furosemide as above Chronic atrial fibrillation-status post pacemaker placement. Rate control good at this time. He is chronically anticoagulated. INR is still slightly supratherapeutic today. -Beta-maddy as above -Hold warfarin today -INR in a.m. Maintenance issues - DVT prophylaxis -warfarin - GI prophylaxis -not indicated - Nutrition -low-sodium - Hernandez catheter -Hernandez will be removed today Disposition -I would anticipate discharge to a detention facility after the hospital stay Wagner Rhodes MD
[2020-10-07] MEDS ORDERED: Furosemide 40 MG/4 ML VIAL IVPUSH ONE (10:30)
[2020-10-07] MEDS: Melatonin 3 MG Tab PO SCH (21:06)
[2020-10-08] MEDS: Clotrimazole 10 MG Troche PO SCH ×2 (05:21→11:19)
[2020-10-08] MEDS: Lactobacillus Rhamnosus GG (Probiotic) Cap PO SCH (08:24)
[2020-10-08] MEDS: Doxycycline 100 MG Cap PO SCH (08:24)
[2020-10-08] MEDS: Potassium Chloride 20 MEQ Tab.ER PO SCH (08:24)
[2020-10-08] MEDS: Carvedilol 12.5 MG Tab PO SCH (08:24)
[2020-10-08] MEDS: Amiodarone 200 MG Tab PO SCH (08:24)
[2020-10-08] MEDS: Amoxicillin/Clavulanate K 875-125 MG Tab PO SCH (08:24)
[2020-10-08] MEDS ORDERED: Furosemide 40 MG Tab PO SCH (09:00)
--- NOTE | 2020-10-08 10:31 | PCM.DCSUM1 ---
Discharge Summary - Hospital Course Brief History: 89-year-old male with history of systolic congestive heart failure, chronic atrial fibrillation who presented with progressive weakness, cough and shortness of breath. He was admitted for management of bilateral pneumonia with acute hypoxic respiratory failure. Diagnosis: Stroke: No - Discharge Data Discharge Date: 10/08/20 Discharge Disposition: DC/Tfer to SNF 03 Condition: Fair - Referral to Home Health Primary Care Physician: PCP None - Discharge Diagnosis/Problem(s) (1) Bilateral pneumonia SNOMED Code(s): 389929952 ICD Code: J18.9 - PNEUMONIA, UNSPECIFIED ORGANISM Status: Acute Qualifiers: Pneumonia type: due to unspecified organism Lung location: lower lobe of lung Qualified Code(s): J18.9 - Pneumonia, unspecified organism (2) Congestive heart failure SNOMED Code(s): 33562543 ICD Code: I50.9 - HEART FAILURE, UNSPECIFIED Status: Acute Priority: High Qualifiers: Heart failure type: systolic Heart failure chronicity: acute on chronic Qualified Code(s): I50.23 - Acute on chronic systolic (congestive) heart failure (3) Acute respiratory failure with hypoxia SNOMED Code(s): 20672413, 089886437 ICD Code: J96.01 - ACUTE RESPIRATORY FAILURE WITH HYPOXIA Status: Acute (4) Hyponatremia SNOMED Code(s): 84457595 ICD Code: E87.1 - HYPO-OSMOLALITY AND HYPONATREMIA Status: Acute (5) Atrial fibrillation SNOMED Code(s): 94186830 ICD Code: I48.91 - UNSPECIFIED ATRIAL FIBRILLATION Status: Chronic Qualifiers: Atrial fibrillation type: permanent Qualified Code(s): I48.21 - Permanent atrial fibrillation (6) Acute urinary retention SNOMED Code(s): 267150762 ICD Code: R33.8 - OTHER RETENTION OF URINE Status: Acute - Patient Summary/Data Consults: Consultations 10/03/20 12:14 Consult to Speech Language Pathology [SWIMMING POOL SALESPERSON Evaluation and Treatment] [CONS] Routine Please Evaluate and Treat SWIMMING POOL SALESPERSON Reason for Consult: Swallow This query below is only for informational purposes and is not editable. Admission Diagnosis/Problem: Congestive heart failure 10/06/20 10:12 PT Evaluation and Treatment [CONS] Routine Please Evaluate and Treat. PT Reason for Consult: Strengthening This query below is only for informational purposes and is not editable. Admission Diagnosis/Problem: Congestive heart failure Hospital Course: Bryce presented to the emergency room with 1 week of progressive cough, shortness of breath and weakness. Work-up in the emergency room was suggestive of a bilateral pneumonia with small bilateral pleural effusions and acute respiratory failure with hypoxia. His respiratory status was compromised enough that he required noninvasive ventilation in the emergency room. A chest CT confirmed severe bilateral pneumonia with small effusions. Cultures were obtained and he was started on antibiotics to cover respiratory infection and he was admitted to the intensive care unit for further management. Distally we did see an improvement in his respiratory status over the first couple of days. He required less support and was able to be weaned off of the noninvasive ventilation. He did intermittently receive some furosemide to help manage lower extremity edema which was superimposed congestive heart failure on top of the pneumonia. Unfortunately he had difficulty with coughing and choking as well as intermittent hypoxia after eating. He spent a period of time with nothing by mouth status until speech pathology was available for consultation. He did well with nectar thick liquids and a pured diet. Fortunately we have seen additional improvement in his respiratory status after the change in his diet. He does continue to require supplemental oxygen but has been stable to improving. Antibiotics were transitioned to doxycycline and Unasyn for anaerobic coverage along with some pneumonia coverage. He has tolerated this change well and he has now been transitioned to oral antibiotics. He does remain quite weak and requires heavy assist of 2 people for transfers and is not safe for discharged home at this time. He did have an episode of aspiration which appeared to be relatively mild the night before [facility]. He is only on 2 L of supplemental oxygen this morning. I think he is stable and safe for discharge [facility] at this time. He would benefit from physical therapy as well as occupational therapy and speech pathology consultations and management. He needs 3-1/2 additional days of antibiotic therapy after hospital discharge. Intermittently during the hospital stay he had hypokalemia which has improved with supplementation. This was likely due to the diuresis for his superimposed congestive heart failure which now appears to be fairly well compensated other than some swelling of his feet and ankles which is much better than at the time of presentation. He did have a Barrera catheter in during the majority of the hospital stay because of the need for strict intake and output monitoring. We did try to remove this but he had urinary retention. The Barrera catheter was replaced. The plan is for him to be on tamsulosin for a couple of weeks and then have a trial of voiding without the catheter at that time. - Patient Instructions Diet: Pureed Diet, Other: Honey thick liquids. No straws Activity: As Tolerated Showering/Bathing: May Shower Other/Special Instructions: 1. You were in the hospital for management of bilateral pneumonia with contribution from aspiration pneumonia. Your condition has been improving with antibiotic therapy and additional supportive cares. You do continue to require supplemental oxygen and should use 2 L of oxygen to help maintain saturations greater than 90%. I do recommend additional antibiotic therapy with Augmentin and doxycycline. You should take both of these antibiotics twice daily for 7 more doses. Your first dose outside of the hospital will be due tonight. 2. I have placed a referral to physical and occupational therapy to help provide strengthening exercises so you can improve your strength and endurance following an acute respiratory illness creating generalized weakness. 3. Please check INR 10/12/20 - Dx: afib. 4. Code status - DNR/DNI. 5. Routine barrera catheter cares. Anticipate trial of voiding in 2 weeks. - Discharge Plan *PRESCRIPTION DRUG MONITORING PROGRAM REVIEWED*: Not Applicable *COPY OF PRESCRIPTION DRUG MONITORING REPORT IN PATIENT SHANTI: Not Applicable Prescriptions/Med Rec: Amoxicillin/Clavulanate K [Augmentin 875-125 MG] 1 tab PO BID #7 tablet carvediloL [Coreg] 12.5 mg PO BID #60 tablet Lactobacillus Rhamnosus GG [Culturelle] 1 cap PO BID #14 cap Tamsulosin [Flomax] 0.4 mg PO BEDTIME #30 cap.er Acetaminophen [Tylenol] 650 mg PO Q4H PRN #200 tablet PRN Reason: Pain (Mild 1-3)/fever Doxycycline [Vibramycin] 100 mg PO BID #7 cap Home Medications: Home Meds Losartan Potassium 0.5 tab PO DAILY 01/31/18 [History] Amiodarone [Cordarone] 200 mg PO DAILY 11/02/18 [History] Furosemide 20 mg PO DAILY #30 tablet 11/04/18 [Rx] Acetaminophen [Tylenol] 650 mg PO Q4H PRN #200 tablet 10/08/20 [Rx] Albuterol Sulfate 3 ml INH TID #90 10/08/20 [Rx] Amoxicillin/Clavulanate K [Augmentin 875-125 MG] 1 tab PO BID #7 tablet 10/08/20 [Rx] Doxycycline [Vibramycin] 100 mg PO BID #7 cap 10/08/20 [Rx] Lactobacillus Rhamnosus GG [Culturelle] 1 cap PO BID #14 cap 10/08/20 [Rx] Tamsulosin [Flomax] 0.4 mg PO BEDTIME #30 cap.er 10/08/20 [Rx] Warfarin [Coumadin] 1.25 mg PO DAILY #0 10/08/20 [Rx] carvediloL [Coreg] 12.5 mg PO BID #60 tablet 10/08/20 [Rx] Oxygen Therapy Mode: Nasal Cannula Oxygen Flow Rate (L/min): 2 (keep sats >90%) Patient Handouts: Aspiration Precautions, Adult Referrals: Be Smith MD [Physician] - (1-2 weeks - f/u hospital stay for pneumonia, aspiration ) - Discharge Summary/Plan Comment DC Time >30 min.: Yes (45-new [facility] discharge ) - Patient Data Vitals - Most Recent: Last Vital Signs Temp 36.8 C 10/08/20 07:32 Pulse 57 L 10/08/20 08:24 Resp 24 H 10/08/20 07:32 BP 165/57 H 10/08/20 08:24 Pulse Ox 96 10/08/20 07:32 Weight - Most Recent: 68 kg I&O - Last 24 hours: Intake & Output 10/07/20 10/08/20 10/08/20 22:59 06:59 14:59 Output Total 150 500 Balance -150 -500 Lab Results - Last 24 hrs: Laboratory Results - last 24 hr 10/08/20 10/08/20 Range/Units 05:00 05:00 PT 28.6 H (9.5-12.0) sec INR 2.67 H (0.80-1.20) Sodium 147 (140-148) mmol/L Potassium 4.2 (3.6-5.2) mmol/L Chloride 109 H (100-108) mmol/L Carbon Dioxide 31 (21-32) mmol/L Anion Gap 11.2 (5.0-14.0) mmol/L BUN 22 H (7-18) mg/dL Creatinine 0.8 (0.8-1.3) mg/dL Est Cr Clr Drug Dosing 52.77 mL/min Estimated GFR (MDRD) > 60 (>60) Glucose 145 H (74-106) mg/dL Calcium 9.0 (8.5-10.1) mg/dL Med Orders - Current: Current Medications Acetaminophen (Tylenol) 650 mg PO Q4H PRN PRN Reason: Pain (Mild 1-3)/fever Last Admin: 10/06/20 21:37 Dose: 650 mg Documented by: Acetaminophen/Codeine Phosphate (Tylenol With Codeine No.3 300mg/30mg) 1 tab PO Q6H PRN PRN Reason: Pain (moderate 4-6) Albuterol (Proventil Neb Soln) 2.5 mg NEB Q4H PRN PRN Reason: Shortness Of Breath/wheezing Amiodarone HCl (Cordarone) 200 mg PO DAILY [facility] Last Admin: 10/08/20 08:24 Dose: 200 mg Documented by: Amoxicillin/Clavulanate Potassium (Augmentin 875 Mg/125 Mg) 1 tab PO BID [facility] Last Admin: 10/08/20 08:24 Dose: 1 tab Documented by: Carvedilol (Coreg) 12.5 mg PO BID [facility] Last Admin: 10/08/20 08:24 Dose: 12.5 mg Documented by: Clotrimazole (Mycelex) 10 mg PO 5XDAY [facility] Last Admin: 10/08/20 05:21 Dose: Not Given Documented by: Doxycycline Hyclate (Vibramycin) 100 mg PO BID [facility] Last Admin: 10/08/20 08:24 Dose: 100 mg Documented by: Furosemide (Lasix) 40 mg PO DAILY [facility] Last Admin: 10/08/20 08:24 Dose: 40 mg Documented by: Lactobacillus Rhamnosus (Culturelle) 1 cap PO BID [facility] Last Admin: 10/08/20 08:24 Dose: 1 cap Documented by: Lorazepam (Ativan) 0.5 mg IVPUSH Q4H PRN PRN Reason: Nausea/Vomiting Magnesium Hydroxide (Milk Of Magnesia) 30 ml PO Q12H PRN PRN Reason: Constipation Melatonin (Melatonin) 9 mg PO BEDTIME [facility] Last Admin: 10/07/20 21:06 Dose: 9 mg Documented by: Morphine Sulfate (Morphine) 2 mg IVPUSH Q2H PRN PRN Reason: Pain (severe 7-10) Ondansetron HCl (Zofran) 4 mg IV Q6H PRN PRN Reason: Nausea/Vomiting Ondansetron HCl (Zofran Odt) 4 mg PO Q6H PRN PRN Reason: Nausea able to take PO Potassium Chloride (Klor-Con M20) 40 meq PO BID JOSEPH Last Admin: 10/08/20 08:24 Dose: 40 meq Documented by: Senna/Docusate Sodium (Senna Plus) 1 tab PO BID PRN PRN Reason: Constipation Sodium Chloride (Saline Flush) 10 ml FLUSH ASDIRECTED PRN PRN Reason: Keep Vein Open Last Admin: 10/01/20 05:57 Dose: 10 ml Documented by: Discontinued Medications Barium Sulfate (E-Z-Hd) 50 gm PO . DIRECTED PRN PRN Reason: RADIOLOGY EXAM Stop: 10/06/20 15:18 Last Admin: 10/05/20 15:24 Dose: 50 gm Documented by: Barium Sulfate (E-Z-Paste) 25 gm PO . DIRECTED PRN PRN Reason: RADIOLOGY EXAM Stop: 10/06/20 15:18 Last Admin: 10/05/20 15:21 Dose: 25 gm Documented by: Furosemide (Lasix) 40 mg IVPUSH NOW ONE Stop: 10/01/20 08:31 Last Admin: 10/01/20 08:40 Dose: 40 mg Documented by: Furosemide (Lasix) 40 mg IVPUSH NOW ONE Stop: 10/02/20 10:38 Last Admin: 10/02/20 17:47 Dose: Not Given Documented by: Furosemide (Lasix) 20 mg IVPUSH NOW ONE Stop: 10/02/20 11:01 Last Admin: 10/02/20 10:56 Dose: 20 mg Documented by: Furosemide (Lasix) 40 mg IVPUSH NOW ONE Stop: 10/03/20 13:01 Last Admin: 10/03/20 13:43 Dose: 40 mg Documented by: Furosemide (Lasix) 40 mg IVPUSH NOW ONE Stop: 10/04/20 08:31 Last Admin: 10/04/20 09:10 Dose: 40 mg Documented by: Furosemide (Lasix) 40 mg IVPUSH NOW ONE Stop: 10/05/20 12:15 Last Admin: 10/05/20 12:47 Dose: 40 mg Documented by: Furosemide (Lasix) 40 mg IVPUSH ONETIME ONE Stop: 10/06/20 10:31 Last Admin: 10/06/20 10:57 Dose: 40 mg Documented by: Furosemide (Lasix) 40 mg IVPUSH ONETIME ONE Stop: 10/07/20 10:31 Last Admin: 10/07/20 10:44 Dose: 40 mg Documented by: Sodium Chloride (Normal Saline) 1,000 mls @ 125 mls/hr IV ASDIRECTED [facility] Last Admin: 10/01/20 06:14 Dose: 125 mls/hr Documented by: Ceftriaxone Sodium 1 gm/ (Sodium Chloride) 50 mls @ 100 mls/hr IV Q24H [facility] Last Admin: 10/03/20 12:31 Dose: Not Given Documented by: Doxycycline Hyclate 100 mg/ (Sodium Chloride) 100 mls @ 100 mls/hr IV Q12H [facility] Last Admin: 10/06/20 11:39 Dose: Not Given Documented by: Sodium Chloride (Normal Saline) 1,000 mls [facility] 75 [facility] Last Admin: 10/03/20 06:11 Dose: 75 mls/hr Documented by: Sodium Chloride (Normal Saline) 1,000 mls @ 50 mls/hr IV ASDIRECTED [facility] Last Admin: 10/05/20 02:32 Dose: 50 mls/hr Documented by: Ampicillin Sodium/Sulbactam (Sodium 1.5 gm/ Sodium Chloride) 50 mls @ 100 mls/hr IV Q6H [facility] Stop: 10/06/20 16:00 Last Admin: 10/06/20 14:18 Dose: 100 mls/hr Documented by: Lidocaine HCl (Xylocaine 2% Jelly) 10 ml MUCMEM ONETIME ONE Stop: 10/01/20 06:42 Last Admin: 10/01/20 06:51 Dose: 10 ml Documented by: Potassium Chloride (Klor-Con M20) 40 meq PO ONETIME ONE Stop: 10/02/20 11:01 Last Admin: 10/02/20 10:56 Dose: 40 meq Documented by: Potassium Chloride (Klor-Con M20) 40 meq PO ONETIME ONE Stop: 10/02/20 17:01 Last Admin: 10/02/20 16:55 Dose: 40 meq Documented by: Potassium Chloride (Klor-Con M20) 40 meq PO ONETIME ONE Stop: 10/06/20 10:31 Last Admin: 10/06/20 10:57 Dose: 40 meq Documented by: Warfarin Sodium (Coumadin) 1.25 mg PO DAILY@1300 JOSEPH Last Admin: 10/03/20 13:45 Dose: 1.25 mg Documented by: Warfarin Sodium (Coumadin) 0.625 mg PO DAILY@1300 JOSEPH Last Admin: 10/04/20 13:29 Dose: 0.625 mg Documented by:
== END 2020-10-08 12:30 | disposition home or self-care (01) | DRG 291 ==
LOC: JP.ED 05:38 → UNDOADMIN 08:33 → JP.ICU 08:33 → UNDOADMIN 10-06 10:38 → JP.MS 10-06 10:38 → JP.ICU 10-06 16:30 → JP.MS 10-06 16:30 → UNDODISIN 10-08 12:30
PROVIDERS: ADMIT Hospitalist; ATTEND Internal Medicine
PROC: 5A0945Z Assistance with Respiratory Ventilation, 24-96 Consecutive Hours (ICD-10-PCS; principal; 2020-10-01)
DX: J81.0 Acute pulmonary edema (principal); I50.23 Acute on chronic systolic (congestive) heart failure; R09.02 Hypoxemia; J18.9 Pneumonia, unspecified organism; I48.91 Unspecified atrial fibrillation; I50.9 Heart failure, unspecified; J96.01 Acute respiratory failure with hypoxia; E87.1 Hypo-osmolality and hyponatremia; I48.21 Permanent atrial fibrillation; Z66 Do not resuscitate; J44.9 Chronic obstructive pulmonary disease, unspecified; R13.10 Dysphagia, unspecified; Z20.828 Contact with and (suspected) exposure to other viral communicable diseases; R33.8 Other retention of urine; E87.6 Hypokalemia; H91.90 Unspecified hearing loss, unspecified ear; K21.9 Gastro-esophageal reflux disease without esophagitis; M19.90 Unspecified osteoarthritis, unspecified site; Z79.01 Long term (current) use of anticoagulants; Z79.899 Other long term (current) drug therapy; Z98.49 Cataract extraction status, unspecified eye; Z95.810 Presence of automatic (implantable) cardiac defibrillator
CPT/HCPCS: 36415 ×2; 36600; 51702; 71045 ×2; 80048 ×2; 81001; 82803; 83880; 84484; 85027; 85610 ×2; 86140; 94660; 99285; A9270 ×3; J0287 ×2; J7030; U0002 ×2; 71250; 74230; 74230-26; 83735; 85025; 92611-GN; 96374; 97162-GP; 97530-GP; 97535-GP; 99222-AI; 99232; 99239; 99283; J0696; J1940; J3490; J7050